=== PATIENT | female | born 1930 | race Caucasian/White ===

== ENCOUNTER → 2016-12-25 | Outpatient (CLI) | payer MEDICARE, OTHER ==
--- NOTE | 2016-12-27 08:39 | WOMENS IMAGING REPORT ---
EXAM DESCRIPTION: 3D SCREENING MAMMO BILAT COMPLETED DATE/TIME: 12/25/2016 10:39 am REASON FOR STUDY: ROUTINE SCREENING; Z12.31 Z12.31 ENCNTR SCREEN MAMMOGRAM FOR MALIGNANT NEOPLASM O F JUSTO COMPARISON: 2015 TECHNIQUE: Standard craniocaudal and mediolateral oblique views of each breast recorded using digita l acquisition and breast tomosynthesis. LIMITATIONS: None. FINDINGS: Findings present which are benign by mammographic criteria. No suspicious masses, calcifi cations or architectural distortion. Pertinent benign findings: Stable bilateral breast parenchymal calcifications and arterial vascular c alcifications. Read with the assistance of CAD. .[facility] - R2 Cenova Version 1.3 .[facility] Imaging - R2 Cenova Version 1.[address] - R2 Cenova Version 2.4 .[facility] [place] Cenova Version 2.4 .[facility] - R2 Motion Picture Equipment Machinist Version 9.2 Benign mammographic findings may include one or more of the following: Smooth masses, popcorn/rim/co arse calcifications, asymmetries, post-procedure changes, and lesions with long-standing stability. IMPRESSION: BENIGN MAMMOGRAPHIC FINDINGS. BIRADS 2 BREAST DENSITY: b. There are scattered areas of fibroglandular density. BIRAD: 2 BENIGN FINDING(S) RECOMMENDATION: RECOMMENDATION: ROUTINE SCREENING Please continue yearly bilateral screening tomosynthesis in December 2017 COMMENT: The patient has been notified of the results by letter per SA requirements. Additional no tification policies are in place for contacting patient with suspicious or incomplete findings. Quality ID #[id number]: The [employer] recommends an annual screening mammogram for women aged 40 years or over. This facility utilizes a reminder system to ensure that all patients receive reminder letters, and/or direct phone calls for appointments. This includes reminders for routine scr eening mammograms, diagnostic mammograms, or other Breast Imaging Interventions when appropriate. Th is patient will be placed in the appropriate reminder system. The [employer] (ACR) has developed recommendations for screening MRI of the breast s in certain patient populations, to be used in conjunction with mammography. Breast MRI surveillanc e may be appropriate for women with more than 20% lifetime risk of developing breast cancer as deter mined by genetic testing, significant family history of the disease, or history of mantle radiation f or Hodgkins Disease. ACR Practice Guidelines 2008. DBT Technology DBT is a type of tomographic mammography. With conventional mammography, overlapping breast tissue ma y make lesions difficult to detect, even with good compression. DBT uses an x-ray tube that rotates a round the breast, taking images at different angles. These images are then combined to create thin sl ices of the breast that the radiologist can view as a 3D reconstruction. The Holo[employer]DEL unit can perform full-field digital mammograms (2D imaging); or DBT (3D imaging); or both, in a combination mode that quickly performs both the mammogram and the tomosynthesis scan while the breast is still compressed. PQRS 6045F: Fluoroscopic imaging is not utilized for breast tomosynthesis. TECHNICAL DOCUMENTATION: FINDING NUMBER: (1) ASSESSMENT: (1) JOB ID: [id number] [email or web address]- All Rights Reserved
== END ==
LOC: WI 10:17
PROVIDERS: ATTEND Internal Medicine
DX: Z12.31 Encounter for screening mammogram for malignant neoplasm of breast (principal)
CPT/HCPCS: 77063; G0202; 77067

== ENCOUNTER → 2018-07-21 | Outpatient (CLI) | payer MEDICARE, OTHER ==
--- NOTE | 2018-07-21 13:19 | WOMENS IMAGING REPORT ---
EXAM DESCRIPTION: 3D SCREENING MAMMO BILAT COMPLETED DATE/TIME: 07/21/2018 12:31 pm REASON FOR STUDY: Z12.31 SCREENING MAMMO Z12.31 ENCNTR SCREEN MAMMOGRAM FOR MALIGNANT NEOPLASM OF B RE COMPARISON: 2015, 2016 TECHNIQUE: Standard craniocaudal and mediolateral oblique views of each breast recorded using digita l acquisition and breast tomosynthesis. LIMITATIONS: None. FINDINGS: No masses, calcifications or architectural distortion. No areas of suspicion. Read with the assistance of CAD. .[facility] - R2 Cenova Version 1.3 .[facility] Imaging - R2 Cenova Version 2.1 .[facility] - R2 Cenova Version 2.4 [place] [place] Cenova Version 2.4 .[facility] - R2 Glass Glazier Version 9.2 IMPRESSION: NORMAL MAMMOGRAM. BIRADS 1. BREAST DENSITY: b. There are scattered areas of fibroglandular density. BIRAD: 1 NEGATIVE RECOMMENDATION: ROUTINE SCREENING COMMENT: The patient has been notified of the results by letter per SA requirements. Additional no tification policies are in place for contacting patient with suspicious or incomplete findings. Quality ID #[id number]: The [employer] recommends an annual screening mammogram for women aged 40 years or over. This facility utilizes a reminder system to ensure that all patients receive reminder letters, and/or direct phone calls for appointments. This includes reminders for routine scr eening mammograms, diagnostic mammograms, or other Breast Imaging Interventions when appropriate. Th is patient will be placed in the appropriate reminder system. The [employer] (ACR) has developed recommendations for screening MRI of the breast s in certain patient populations, to be used in conjunction with mammography. Breast MRI surveillanc e may be appropriate for women with more than 20% lifetime risk of developing breast cancer as deter mined by genetic testing, significant family history of the disease, or history of mantle radiation f or Hodgkins Disease. ACR Practice Guidelines 2008. DBT Technology DBT is a type of tomographic mammography. With conventional mammography, overlapping breast tissue ma y make lesions difficult to detect, even with good compression. DBT uses an x-ray tube that rotates a round the breast, taking images at different angles. These images are then combined to create thin sl ices of the breast that the radiologist can view as a 3D reconstruction. The [employer] unit can perform full-field digital mammograms (2D imaging); or DBT (3D imaging); or both, in a combination mode that quickly performs both the mammogram and the tomosynthesis scan while the breast is still compressed. PQRS 6045F: Fluoroscopic imaging is not utilized for breast tomosynthesis. TECHNICAL DOCUMENTATION: FINDING NUMBER: (1) ASSESSMENT: (1) JOB ID: [id number] [employer]- All Rights Reserved Reading location - IP/workstation name: [email or web address]
== END ==
LOC: WI 11:28
PROVIDERS: ATTEND Internal Medicine
DX: Z12.31 Encounter for screening mammogram for malignant neoplasm of breast (principal)
CPT/HCPCS: 77063; 77067

== ENCOUNTER 2020-05-12 11:56 | Inpatient (IN) | payer MEDICARE, OTHER ==
[2020-05-12] MEDS ORDERED: NORMAL SALINE 1000 ML 1,000 ML IV ONE ×2 (13:15→14:17)
[2020-05-12 13:19] LABS: ABSOLUTE BASOPHILS # (AUTO) 0.1 10^3/uL (0.0-0.2); ABSOLUTE LYMPHOCYTES (AUTO) 0.7 10^3/uL (0.5-4.7); ABSOLUTE MONOCYTES (AUTO) 0.5 10^3/uL (0.1-1.4); ABSOLUTE NEUT (AUTO) 4.5 10^3/uL (1.7-8.2); BASOPHILS % (AUTO) 0.9 % (0-2); EOSINOPHILS % (AUTO) 0.6 % (0-6); HEMATOCRIT 38.1 % (36.0-47.0); HEMOGLOBIN 12.6 g/dL (12.0-15.5); LYMPHOCYTES % (AUTO) 12.7 % (13-45); MEAN CORPUSCULAR HEMOGLOBIN 30.3 pg (27.0-33.4); MEAN CORPUSCULAR VOLUME 92 fl (80-97); MONOCYTES % (AUTO) 8.4 % (3-13); PLATELET COUNT 160 10^3/uL (150-450); RED BLOOD COUNT 4.15 10^6/uL (3.72-5.28); RED CELL DISTRIBUTION WIDTH 15.2 % (11.5-14.0); SEGMENTED NEUTROPHILS % (AUTO) 77.4 % (42-78); TOTAL CELLS COUNTED % (AUTO) 100 %; WHITE BLOOD COUNT 5.8 10^3/uL (4.0-10.5)
[2020-05-12 13:50] LABS: ALBUMIN 3.9 g/dL (3.5-5.0); ALKALINE PHOSPHATASE 80 U/L (38-126); ANION GAP 6 (5-19); ASPARTATE AMINO TRANSFERASE 32 U/L (14-36); BILIRUBIN,DIRECT 0.2 mg/dL (0.0-0.4); BILIRUBIN,TOTAL 0.7 mg/dL (0.2-1.3); BLOOD UREA NITROGEN 16 mg/dL (7-20); CALCIUM 10.1 mg/dL (8.4-10.2); CARBON DIOXIDE 32 mmol/L (22-30); CHLORIDE 100 mmol/L (98-107); CREATINE KINASE 45 U/L (30-135); GLUCOSE 141 mg/dL (75-110); POTASSIUM 4.7 mmol/L (3.6-5.0); TOTAL PROTEIN 7.1 g/dL (6.3-8.2)
--- NOTE | 2020-05-12 13:50 | RADIOLOGY REPORT (SQ) ---
EXAM DESCRIPTION: CHEST SINGLE VIEW IMAGES COMPLETED DATE/TIME: 05/12/2020 1:34 pm REASON FOR STUDY: SOB/PUI COMPARISON: 11/13/2012 EXAM PARAMETERS: NUMBER OF VIEWS: One view. TECHNIQUE: Single frontal radiographic view of the chest acquired. RADIATION DOSE: NA LIMITATIONS: None. FINDINGS: LUNGS AND PLEURA: Chronic right infrahilar opacity patchy vague density suggested in the right upper lung zone. Calcified granuloma right lung base. No pneumothorax. MEDIASTINUM AND HILAR STRUCTURES: No masses. Contour normal. HEART AND VASCULAR STRUCTURES: Stable appearance. BONES: No acute findings. HARDWARE: None in the chest. OTHER: No other significant finding. IMPRESSION: 1. Chronic right infrahilar opacity the prior study dated 11/13/2012. 2. Vague opacity suggested in the right upper lung zone. TECHNICAL DOCUMENTATION: JOB ID: [id number] [employer]- All Rights Reserved Reading location - IP/workstation name: [email or web address]
[2020-05-12 13:51] LABS: CREATINE KINASE MB 1.9 ng/mL (<4.55); TROPONIN I 0.024 ng/mL
--- NOTE | 2020-05-12 14:04 | EKG REPORT ---
SEVERITY:- ABNORMAL ECG - ATRIAL FLUTTER WITH 2:1 AV BLOCK RIGHT BUNDLE BRANCH BLOCK : Confirmed by: Jose Elias Whitaker MD 12-May-2020 14:04:12
[2020-05-12] MEDS ORDERED: DEXAMETHASONE SOD PHOS INJ 10 MG/1 ML VIAL IV ONE (14:18)
--- NOTE | 2020-05-12 15:18 | ER Document Report ---
ED General - General Chief Complaint: Flu Symptoms Stated Complaint: CHEST PAIN,COUGH,CHILLS Time Seen by Provider: 05/12/20 14:00 Primary Care Provider: NERI DENIS MD [Primary Care Provider] - Follow up as needed TRAVEL OUTSIDE OF THE [place] IN LAST 30 DAYS: No - HPI Notes: Chief complaint: Cough, myalgias, generalized weakness and watery diarrhea History of present illness: 89-year-old female with history of hypertension and osteoarthritis presenting with symptoms as noted above over the past 1 week. Feels that she is getting weaker and notes that she has had about 5 loose stools today. No recent antibiotic therapy. Denies Covid exposure and says that she has generally avoided leaving the house recently. Not experiencing dyspnea on exertion. Patient says she has felt like she had a low-grade fever at home. Decreased appetite and fluid intake. Denies any previous cardiac history. She is not diabetic. She does have a history of hypothyroidism. Non-smoker. No alcohol consumption. - Related Data Allergies/Adverse Reactions: No Known Allergies Allergy (Verified 05/12/20 13:12) Past Medical History - General Information source: Patient, [facility] Records - Social History Smoking Status: Never Smoker Family History: Reviewed & Not Pertinent - Past Medical History Cardiac Medical History: Reports: Hx Hypertension Denies: Hx Coronary Artery Disease, Hx Heart Attack Pulmonary Medical History: Reports: Hx Pneumonia Denies: Hx Asthma, Hx Bronchitis, Hx COPD Neurological Medical History: Denies: Hx Cerebrovascular Accident, Hx Seizures Musculoskeletal Medical History: Reports Hx Arthritis - back Past Surgical History: Reports: Hx Orthopedic Surgery - RIGHT KNEE LIGAMENT INJURY REPAIR. - Immunizations Hx Diphtheria, Pertussis, Tetanus Vaccination: Yes Hx Pneumococcal Vaccination: 02/18/12 Review of Systems - Review of Systems Notes: Constitutional: As per HPI. HENT: Negative for sore throat. Eyes: Negative for visual changes. Cardiovascular: "Sore" in her chest bilaterally when she takes a deep breath. Respiratory: As per HPI. No sputum production. Gastrointestinal: As per HPI. Genitourinary: Negative for dysuria. Musculoskeletal: Diffuse myalgias. Skin: Negative for rash. Neurological: Negative for headaches, focal weakness or numbness. 10 point ROS negative except as marked above and in HPI. Physical Exam - Vital signs Vitals: Temp Pulse Resp BP Pulse Ox 97.9 F 158 H 18 143/91 H 94 05/12/20 12:11 05/12/20 12:11 05/12/20 12:11 05/12/20 12:11 05/12/20 12:11 - Notes Notes: GENERAL: Elderly female who is awake and alert but appears dehydrated. SKIN: Pale with diminished turgor. No rashes. HEAD: Normocephalic atraumatic. EYES: PERRLA. EOMI. Conjunctivae and sclerae clear. EARS: CANALS AND TMS CLEAR. NOSE: CLEAR. MOUTH: Tacky oral mucosa. Good dentition. No stridor or edema. No drooling. NECK: Supple. No masses or thyromegaly. No adenopathy. Carotids 2+ without bruits. No JVD. BACK: Symmetrical without tenderness. CHEST: Respirations are mildly labored with scattered rhonchi and symmetrical breath sounds. Slight dry cough. HEART: Tachycardic regular rhythm. No murmur gallop or rub. ABDOMEN: Mildly obese, soft nontender without masses, organomegaly or rebound. Bowel sounds are active. No bruits. GENITALIA: Deferred. EXTREMITIES: 1+ bilateral pretibial edema. Broken varicosities both lower legs. No calf tenderness. Cap refill less than 1.5 seconds. Dorsalis pedis and posterior tibial pulses 3+ and symmetrical. NEUROLOGICAL: GCS 15. Alert and oriented x3. Fluent speech. Cranial nerves II through XII intact. Sensorimotor and cerebellar normal. Normal tone. PSYCHIATRIC: Appropriate affect. Course - Re-evaluation Re-evalutation: 05/12/20 16:29 Elderly lady with new onset narrow complex tachycardia after having greater than 24 hours of watery diarrhea and clinical dehydration. She denies any prior history of CHF but has an elevated BNP and has some peripheral edema lower extremities which she says has developed over the last 1 week. No chest pain. Normal troponin. Test x-ray suggested patchy infiltrates. We got a rapid Covid swab which was negative. Patient was initially given IV fluids and her rate failed to improve with this. Subsequently she got some IV adenosine which unmasked her flutter waves. She has subsequently been given an IV bolus of diltiazem started on IV diltiazem drip. She is going to be admitted to [facility] by Dr. Thompson. - Vital Signs Vital signs: Temp Pulse Resp BP Pulse Ox 97.9 F 158 H 26 H 139/103 H 95 05/12/20 12:11 05/12/20 12:11 05/12/20 14:01 05/12/20 14:00 05/12/20 14:01 - Laboratory Results Result Diagrams: 05/12/20 13:00 05/12/20 13:00 Laboratory Results Interpreted: 05/12/20 05/12/20 05/12/20 13:00 13:00 13:00 RDW 15.2 H Lymph % (Auto) 12.7 L Carbonic Acid ABG pH ABG pCO2 ABG pO2 ABG HCO3 ABG Total CO2 ABG O2 Saturation Carbon Dioxide 32 H Est GFR (MDRD) Non-Af 51 L Glucose 141 H NT-Pro-B Natriuret Pep 2990 H 05/12/20 15:45 RDW Lymph % (Auto) Carbonic Acid 1.58 H ABG pH 7.34 L ABG pCO2 52.5 H ABG pO2 214.2 H ABG HCO3 27.9 H ABG Total CO2 29.5 H ABG O2 Saturation 99.4 H Carbon Dioxide Est GFR (MDRD) Non-Af Glucose NT-Pro-B Natriuret Pep Critical Laboratory Results Reviewed: Yes Attending or Supervising Physician who Reviewed Labs: MARTÍNEZ JIMENEZ Radiology Results Radiology Results Interpreted: 05/12/20 16:30 Chest X-Ray 05/12/20 00:00 IMPRESSION: 1. Chronic right infrahilar opacity the prior study dated 11/13/2012. 2. Vague opacity suggested in the right upper lung zone. Critical Radiology Results Reviewed: Yes Attending or Supervising Physician who Reviewed Radiology: MARTÍNEZ JIMENEZ - EKG Interpretation by Me Additional EKG results interpreted by me: 05/12/20 16:31 Twelve-lead EKG reviewed by me contemporaneously: 1559 hrs. Indication for study: Tachycardia Rhythm: SVT versus atrial flutter Rate: 156 Intervals: Normal QRS axis: [address]/T wave changes: Nonspecific Comparison with prior tracing: Persistent tachycardia Interpretation: SVT versus atrial flutter with 2-1 block Critical Care Note - Critical Care Note Total time excluding time spent on procedures (mins): 65 - IV adenosine for atrial flutter followed by administration of IV diltiazem bolus and drip. Discharge - Discharge Clinical Impression: Atrial flutter with 2-1 block, Acute decompensated heart failure, Dehydration, Diarrhea Condition: Fair Disposition: ADMITTED INPATIENT Admitting Provider: Dr. Thompson Unit Admitted: [facility]U Referrals: NERI DENIS MD [Primary Care Provider] - Follow up as needed
[2020-05-12] MEDS ORDERED: ADENOSINE INJ/PF 6 MG/2 ML SDV IV ONE ×4 (16:01→16:15)
[2020-05-12] MEDS ORDERED: DILTIAZEM HCL INJ 25 MG/5 ML VIAL IV ONE (16:12)
[2020-05-12 16:23] LABS: ARTERIAL BLOOD BASE EXCESS 1.2 mmol/L; ARTERIAL BLOOD H2CO3 1.58 mmol/L (1.05-1.35); ARTERIAL BLOOD HCO3 27.9 mmol/L (20-24); ARTERIAL BLOOD O2 SATURATION 99.4 % (94-98); ARTERIAL BLOOD PCO2 52.5 mmHg (35-45); ARTERIAL BLOOD PH 7.34 (7.35-7.45); ARTERIAL BLOOD PO2 214.2 mmHg (80-100); ARTERIAL BLOOD TOTAL CO2 29.5 mmol/L (21-25)
[2020-05-12 16:25] LABS: ARTERIAL BLOOD FIO2 2L
[2020-05-12] MEDS: DILTIAZEM HCL/D5W 125 MG/125 ML RTUINJ IV PRN (16:42)
[2020-05-12] MEDS ORDERED: ACETAMINOPHEN 325 MG TABLET PO PRN (17:42)
[2020-05-12] MEDS ORDERED: DEXTROSE 5%-1/4 NORMAL SALINE 1,000 ML IV PRN (17:42)
--- NOTE | 2020-05-12 19:00 | EKG REPORT ---
SEVERITY:- ABNORMAL ECG - ATRIAL FLUTTER WITH RVR INCOMPLETE RIGHT BUNDLE BRANCH BLOCK LOW VOLTAGE THROUGHOUT : Confirmed by: Jose Elias Whitaker MD 12-May-2020 18:59:34
--- NOTE | 2020-05-12 19:04 | PDOC H&P ---
History of Present Illness Admission Date/PCP: 89-year-old female with history of hypertension and osteoarthritis presenting with symptoms of a cold, and subsequent diarrhea. Feels that she is getting weaker and notes that she has had about 5 loose stools today. No recent antibiotic therapy. Denies Covid exposure and says that she has generally avoided leaving the house recently. Not experiencing dyspnea on exertion, but has been noticing substernal chest pain, chills Decreased appetite and fluid intake. Denies any previous cardiac history, but has noted persistent swelling in her legs in the last few days and took some medications for it Patient complains of: chest pain History of Present Illness: SANTIAGO LOVE is a 89 year old female Past Medical History Cardiac Medical History: Reports: Hypertension Denies: Coronary Artery Disease, Myocardial Infarction Pulmonary Medical History: Reports: Pneumonia Denies: Asthma, Bronchitis, Chronic Obstructive Pulmonary Disease (COPD) Neurological Medical History: Denies: Seizures Musculoskeltal Medical History: Reports: Arthritis - back Hematology: Denies: Anemia Past Surgical History Past Surgical History: Reports: Orthopedic Surgery - RIGHT KNEE LIGAMENT INJURY REPAIR. Social History Smoking Status: Never Smoker Frequency of Alcohol Use: None Hx Recreational Drug Use: No Family History Family History: CAD Parental Family History Reviewed: Yes - CAD Children Family History Reviewed: No Sibling(s) Family History Reviewed.: No Medication/Allergy Home Medications: Aspirin [Aspirin 81 mg Chewable Tablet] 81 mg PO DAILY 10/12/12 Atorvastatin Calcium [Lipitor 20 mg Tablet] 20 mg PO QHS #0 tablet 10/24/12 Levothyroxine Sodium [Synthroid 0.05 mg Tablet] 0.05 mg PO DAILY #0 tablet 10/24/12 Cholecalciferol (Vitamin D3) [Vitamin D3 5000 unit Capsule] 5,000 unit PO 11/13/12 Metoprolol Tartrate [Lopressor 25 Mg Tablet] 25 mg PO 11/13/12 Ciprofloxacin HCl [Cipro 500 mg Tablet] 500 mg PO BID 11/27/12 Oxycodone HCl/Acetaminophen [Percocet 5-325 mg Tablet] 1 - 2 tab PO ASDIR PRN 11/27/12 Phenazopyridine HCl [Pyridium 200 mg Tablet] 200 mg PO Q8 11/27/12 Allergies/Adverse Reactions: No Known Allergies Allergy (Verified 05/12/20 13:12) Review of Systems Constitutional: ABSENT: chills, fever(s), headache(s), weight gain, weight loss Eyes: ABSENT: visual disturbances Ears: ABSENT: hearing changes Cardiovascular: ABSENT: chest pain, dyspnea on exertion, edema, orthropnea, palpitations Respiratory: ABSENT: cough, hemoptysis Gastrointestinal: ABSENT: abdominal pain, constipation, diarrhea, hematemesis, hematochezia, nausea, vomiting Genitourinary: ABSENT: dysuria, hematuria Musculoskeletal: ABSENT: joint swelling Integumentary: ABSENT: rash, wounds Neurological: ABSENT: abnormal gait, abnormal speech, confusion, dizziness, focal weakness, syncope Psychiatric: ABSENT: anxiety, depression, homidical ideation, suicidal ideation Endocrine: ABSENT: cold intolerance, heat intolerance, polydipsia, polyuria Hematologic/Lymphatic: ABSENT: easy bleeding, easy bruising Physical Exam Vital Signs: Temp Pulse Resp BP Pulse Ox 97.9 F 158 H 24 H 150/78 H 96 05/12/20 12:11 05/12/20 12:11 05/12/20 18:01 05/12/20 18:01 05/12/20 18:01 Intake & Output 05/11/20 05/12/20 05/13/20 06:59 06:59 06:59 Intake Total 2018 Balance 2018 Weight 88.6 kg General appearance: PRESENT: no acute distress Head exam: PRESENT: atraumatic Eye exam: PRESENT: EOMI, PERRLA Mouth exam: PRESENT: dry mucosa Neck exam: PRESENT: full ROM Respiratory exam: PRESENT: clear to auscultation timothy Cardiovascular exam: PRESENT: irregular rhythm Pulses: PRESENT: normal dorsalis pedis pul GI/Abdominal exam: PRESENT: normal bowel sounds. ABSENT: tenderness Musculoskeletal exam: PRESENT: full ROM Neurological exam: PRESENT: alert, altered, oriented to time, CN II-XII grossly intact Psychiatric exam: PRESENT: appropriate affect Skin exam: PRESENT: intact Results Laboratory Results: 05/12/20 13:00 05/12/20 13:00 05/12/20 05/12/20 05/12/20 13:00 13:00 15:45 WBC 5.8 RBC 4.15 Hgb 12.6 Hct 38.1 MCV 92 MCH 30.3 MCHC 33.0 RDW 15.2 H Plt Count 160 Seg Neutrophils % 77.4 Carbonic Acid 1.58 H HCO3/H2CO3 Ratio 17:1 ABG pH 7.34 L ABG pCO2 52.5 H ABG pO2 214.2 H ABG HCO3 27.9 H ABG O2 Saturation 99.4 H ABG Base Excess 1.2 FiO2 2L Sodium 138.4 Potassium 4.7 Chloride 100 Carbon Dioxide 32 H Anion Gap 6 BUN 16 Creatinine 1.02 Est GFR ( Amer) > 60 Glucose 141 H Calcium 10.1 Total Bilirubin 0.7 AST 32 Alkaline Phosphatase 80 Total Protein 7.1 Albumin 3.9 05/12/20 05/12/20 05/12/20 13:00 13:00 13:00 Creatine Kinase 45 CK-MB (CK-2) 1.90 Troponin I 0.024 Cancelled NT-Pro-B Natriuret Pep 2990 H Impressions: Chest X-Ray 05/12/20 00:00 IMPRESSION: 1. Chronic right infrahilar opacity the prior study dated 11/13/2012. 2. Vague opacity suggested in the right upper lung zone. Assessment and Plan - Diagnosis (1) Acute CHF (congestive heart failure) Qualifiers: Heart failure type: unspecified Is this a current diagnosis for this admission?: Yes (2) Atrial flutter by electrocardiogram Is this a current diagnosis for this admission?: Yes (3) Acute diarrhea Is this a current diagnosis for this admission?: Yes (4) Dehydration Is this a current diagnosis for this admission?: Yes - Plan Summary Summary: 1. acute CHF exacerbation with atrial flutter: new for patient, echo and cardiology consult, telemetry on cardizem drip 2. Diarrhea: no recent antibiotic use > 3BMs per day, C. diff pending 3. OA/Hypertension: home meds need reconciled Code: Full - Time Time Spent with patient: 25-34 minutes Anticipated Discharge Disposition: Home, Self Care Anticipated Discharge Timeframe: unknown Disposition: inpatient > 2midnight
--- NOTE | 2020-05-12 23:28 | XCELERA REPORT ---
[address] [address] Transthoracic Echocardiogram Report Name: SANTIAGO LOVE Age: 89 yrs Gender: Female : 1930 Patient Status: Inpatient Patient Location: [place] [address]^A Study Date: 05/12/2020 08:18 PM Height: 61 in Weight: 195 lb BSA: 1.9 m2 Procedure: A complete two-dimensional transthoracic echocardiogram was performed (2D, M-mode, spectral and color flow Doppler). The study was technically adequate with some images being suboptimal in quality. Reason For Study: chf Ordering Physician: EVELIN WESTBROOK Performed By: Prudence Cisneros Interpretation Summary The patient was in rapid atrial fibrillation during the study. The left ventricle is grossly normal size. Left ventricular systolic function is normal. The Ejection Fraction estimate is 60-65%. LV diastolic function could not be adequately assessed due to atrial fibrilation. No regional wall motion abnormalities noted. LV diastolic function could not be adequately assessed due to atrial fibrilation. Mild biatrial enlargement. Mildly reduced RV systolic dysfunction. Mild to moderate MR, mild to moderate TR, mild to moderate PI. IVC is dilated and without respiratory variation. Moderate pulmonary hypertension with pressures estimated between 51 and 56 mmHg. No prior studies for comparison. MMode/2D Measurements & Calculations RVDd: 3.5 cm LVIDd: 4.1 cm FS: 34.9 % Ao root diam: 3.3 cm IVSd: 1.3 cm LVIDs: 2.7 cm EDV(Teich): Ao root area: 73.1 ml LVPWd: 1.1 cm 8.5 cm2 ESV(Teich): LA dimension: 4.1 cm 25.9 ml EF(Teich): 64.6 % LVLd ap4: 6.6 cm SV(MOD-sp4): EDV(MOD-sp4): 44.0 ml 66.0 ml LVLs ap4: 5.0 cm ESV(MOD-sp4): 22.0 ml EF(MOD-sp4): 66.7 % Doppler Measurements & Calculations MV E max alexandro: MV P1/2t max alexandro: Ao V2 max: LV V1 max P.5 cm/sec 158.8 cm/sec 153.8 cm/sec 2.5 mmHg MV A max alexandro: MV P1/2t: 66.1 msec Ao max PG: LV V1 max: 68.6 cm/sec 9.5 mmHg 79.5 cm/sec MVA(P1/2t): 3.3 cm2 MV E/A: 2.3 MV dec slope: 703.7 cm/sec2 MV dec time: 0.18 sec PA V2 max: PI end-d alexandro: TR max alexandro: MV P1/2t-pr_phl: 63.8 cm/sec 111.5 cm/sec 279.2 cm/sec 66.1 msec PA max P.6 mmHg TR max P.2 mmHg Left Ventricle The left ventricle is grossly normal size. Left ventricular systolic function is normal. The Ejection Fraction estimate is 60-65%. LV diastolic function could not be adequately assessed due to atrial fibrilation. No regional wall motion abnormalities noted. Right Ventricle The right ventricle is grossly normal size. The right ventricular systolic function is mildly reduced. Atria The right atrium is mildly dilated. The left atrium is mildly dilated. Mitral Valve There is moderate mitral leaflet calcification. There is no evidence of mitral valve prolapse. There is no mitral valve stenosis. There is a mild to moderate amount of mitral regurgitation. Aortic Valve The aortic valve is moderately calcified. There is no aortic valve stenosis. No aortic regurgitation is present. Tricuspid Valve The tricuspid valve is not well visualized, but is grossly normal. There is no tricuspid valve prolapse. There is no tricuspid stenosis. There is a mild to moderate amount of tricuspid regurgitation. There is moderate pulmonary hypertension by echo. Right ventricular systolic pressure is estimated to be elevated at 50-60mmHg. Pulmonic Valve The pulmonic valve is not well seen, but is grossly normal. There is no pulmonic valvular stenosis. There is a mild to moderate amount of pulmonic regurgitation. Great Vessels The inferior vena cava appeared dilated and did not change with respiration (RAP > 20 mmHg). Effusions There is no pericardial effusion. There is no pleural effusion. : EVELIN WESTBROOK Antonio
[2020-05-13] MEDS: DILTIAZEM HCL/D5W 125 MG/125 ML RTUINJ IV PRN ×2 (03:12→16:00)
[2020-05-13 06:35] LABS: ABSOLUTE LYMPHOCYTES (AUTO) 0.4 10^3/uL (0.5-4.7); ABSOLUTE MONOCYTES (AUTO) 0.1 10^3/uL (0.1-1.4); ABSOLUTE NEUT (AUTO) 3.5 10^3/uL (1.7-8.2); BASOPHILS % (AUTO) 0.3 % (0-2); HEMATOCRIT 36.6 % (36.0-47.0); HEMOGLOBIN 12.1 g/dL (12.0-15.5); LYMPHOCYTES % (AUTO) 10.5 % (13-45); MEAN CORPUSCULAR HEMOGLOBIN 30.4 pg (27.0-33.4); MEAN CORPUSCULAR HGB CONC 32.9 g/dL (32.0-36.0); MEAN CORPUSCULAR VOLUME 92 fl (80-97); MONOCYTES % (AUTO) 2.2 % (3-13); PLATELET COUNT 148 10^3/uL (150-450); RED BLOOD COUNT 3.96 10^6/uL (3.72-5.28); RED CELL DISTRIBUTION WIDTH 15.1 % (11.5-14.0); TOTAL CELLS COUNTED % (AUTO) 100 %
[2020-05-13 07:03] LABS: ANION GAP 5 (5-19); BLOOD UREA NITROGEN 15 mg/dL (7-20); CALCIUM 9.5 mg/dL (8.4-10.2); CARBON DIOXIDE 31 mmol/L (22-30); CHLORIDE 104 mmol/L (98-107); GLUCOSE 152 mg/dL (75-110); PHOSPHORUS 4.3 mg/dL (2.5-4.5); POTASSIUM 5.4 mmol/L (3.6-5.0)
--- NOTE | 2020-05-13 08:20 | PDOC CONSULTATION ---
Consultation Consult Date: 05/13/20 Attending physician:: EVELIN LEIJA Provider Consulted: TARA LANDRUM Consult reason:: A-flutter History of Present Illness Admission Date/PCP: 05/12/20 19:34 NERI DENIS MD History of Present Illness: 89-year-old female with history of hypertension, hyperlipidemia and arthritis who is consulted to our service for atrial flutter and elevated troponins. The patient has been treated by her primary care provider, Dr. Denis, for an undefined respiratory illness for several months consisting of some shortness of breath and cough. Approximately 2 weeks ago her symptoms worsened and she felt she had a cold. Later she developed diarrhea as well as loss of appetite and a burning sensation across the chest that was constantly present for 3 days and that was alleviated with [place]. Yesterday she became more short of breath and decided to seek medical attention in our facility. In the emergency room she was found to be in rapid atrial flutter and was initially begun on a Cardizem drip which was stopped several hours later. This morning she denies chest discomfort but complains of mild shortness of breath. Physical exam on 05/13/2020: GENERAL: Obese. Pleasant and conversational. Oriented x3 with normal mood. Not in acute distress. Well groomed and well developed. HEENT: Normocephalic, atraumatic. Pupils equal. Sclerae anicteric. Oropharynx moist. NECK: Difficult to evaluate for JVD given her body habitus. No carotid bruits. LUNGS: Very faint deep inspiratory wheezing bilaterally. Normal respiratory effort without the use of accessory muscles or intercostal retractions. CARDIOVASCULAR: Irregularly irregular rate and rhythm, no murmurs, rubs, or gallops. PMI not displaced. ABDOMEN: No masses or tenderness to palpation. No bruit. Difficult to assess for organomegaly given her body habitus. No abdominal aorta bruit noted. EXTREMITIES: Trace pitting edema bilaterally, no cyanosis, no clubbing. +2 pulses femoral and pedal pulses bilaterally. SKIN: No lesions or rashes. MUSCULOSKELETAL: No chest tenderness to palpation. NEUROLOGIC: Nonfocal. No gross sensory or motor deficits bilateral upper or lower extremities. Echocardiogram on May 12, 2020: -The patient was in rapid atrial flutter during the study. -EF 60 to 65%. -Cannot assess for diastolic function. -Mild biatrial lodgment. -Mildly decreased RV systolic function. -Mild to moderate MR, mild to moderate TR, mild to moderate PI. -Moderate pulmonary hypertension with pressures between 51 and 56 mmHg. Past Medical History Cardiac Medical History: Reports: Hypertension Denies: Coronary Artery Disease, Myocardial Infarction Pulmonary Medical History: Reports: Pneumonia Denies: Asthma, Bronchitis, Chronic Obstructive Pulmonary Disease (COPD) Neurological Medical History: Denies: Seizures Musculoskeltal Medical History: Reports: Arthritis - back Hematology: Denies: Anemia Past Surgical History Past Surgical History: Reports: Orthopedic Surgery - RIGHT KNEE LIGAMENT INJURY REPAIR. Social History Smoking Status: Never Smoker Frequency of Alcohol Use: None Hx Recreational Drug Use: No Drugs: None Hx Prescription Drug Abuse: No Family History Family History: CAD Parental Family History Reviewed: Yes Children Family History Reviewed: Yes Sibling(s) Family History Reviewed.: Yes Medication/Allergy Allergies/Adverse Reactions: No Known Allergies Allergy (Verified 05/12/20 13:12) Physical Exam Vital Signs: Temp Pulse Resp BP Pulse Ox 98 F 77 20 123/65 97 05/12/20 23:11 05/13/20 03:08 05/12/20 23:11 05/13/20 03:08 05/12/20 23:11 Intake & Output 05/11/20 05/12/20 05/13/20 06:59 06:59 06:59 Intake Total 2113 Output Total 200 Balance 1913 Weight 88.6 kg Results Laboratory Results: 05/13/20 06:01 05/12/20 05/12/20 05/12/20 13:00 13:00 15:45 WBC 5.8 RBC 4.15 Hgb 12.6 Hct 38.1 MCV 92 MCH 30.3 MCHC 33.0 RDW 15.2 H Plt Count 160 Seg Neutrophils % 77.4 Carbonic Acid 1.58 H HCO3/H2CO3 Ratio 17:1 ABG pH 7.34 L ABG pCO2 52.5 H ABG pO2 214.2 H ABG HCO3 27.9 H ABG O2 Saturation 99.4 H ABG Base Excess 1.2 FiO2 2L Sodium 138.4 Potassium 4.7 Chloride 100 Carbon Dioxide 32 H Anion Gap 6 BUN 16 Creatinine 1.02 Est GFR ( Amer) > 60 Glucose 141 H Calcium 10.1 Total Bilirubin 0.7 AST 32 Alkaline Phosphatase 80 Total Protein 7.1 Albumin 3.9 05/13/20 06:01 WBC 4.0 RBC 3.96 Hgb 12.1 Hct 36.6 MCV 92 MCH 30.4 MCHC 32.9 RDW 15.1 H Plt Count 148 L Seg Neutrophils % 87.0 H Carbonic Acid HCO3/H2CO3 Ratio ABG pH ABG pCO2 ABG pO2 ABG HCO3 ABG O2 Saturation ABG Base Excess FiO2 Sodium Potassium Chloride Carbon Dioxide Anion Gap BUN Creatinine Est GFR ( Amer) Glucose Calcium Total Bilirubin AST Alkaline Phosphatase Total Protein Albumin 05/12/20 05/12/20 05/12/20 13:00 13:00 13:00 Creatine Kinase 45 CK-MB (CK-2) 1.90 Troponin I 0.024 Cancelled NT-Pro-B Natriuret Pep 2990 H Impressions: Chest X-Ray 05/12/20 00:00 IMPRESSION: 1. Chronic right infrahilar opacity the prior study dated . 2. Vague opacity suggested in the right upper lung zone. 05/13/20 06:01 05/13/20 06:01 MCV 92 fl (80-97) 05/13/20 06:01 MCH 30.4 pg (27.0-33.4) 05/13/20 06:01 MCHC 32.9 g/dL (32.0-36.0) 05/13/20 06:01 RDW 15.1 % (11.5-14.0) H 05/13/20 06:01 Seg Neutrophils % 87.0 % (42-78) H 05/13/20 06:01 Carbonic Acid 1.58 mmol/L (1.05-1.35) H 05/12/20 15:45 HCO3/H2CO3 Ratio 17:1 05/12/20 15:45 ABG pH 7.34 (7.35-7.45) L 05/12/20 15:45 ABG pCO2 52.5 mmHg (35-45) H 05/12/20 15:45 ABG pO2 214.2 mmHg (80-100) H 05/12/20 15:45 ABG HCO3 27.9 mmol/L (20-24) H 05/12/20 15:45 ABG O2 Saturation 99.4 % (94-98) H 05/12/20 15:45 ABG Base Excess 1.2 mmol/L 05/12/20 15:45 FiO2 2L 05/12/20 15:45 Chloride 104 mmol/L (98-107) 05/13/20 06:01 Carbon Dioxide 31 mmol/L (22-30) H 05/13/20 06:01 Anion Gap 5 (5-19) 05/13/20 06:01 Est GFR ( Amer) > 60 (>60) 05/13/20 06:01 Glucose 152 mg/dL (75-110) H 05/13/20 06:01 Calcium 9.5 mg/dL (8.4-10.2) 05/13/20 06:01 Phosphorus 4.3 mg/dL (2.5-4.5) 05/13/20 06:01 Magnesium 2.0 mg/dL (1.6-2.3) 05/13/20 06:01 Total Bilirubin 0.7 mg/dL (0.2-1.3) 05/12/20 13:00 AST 32 U/L (14-36) 05/12/20 13:00 Alkaline Phosphatase 80 U/L (38-126) 05/12/20 13:00 Total Protein 7.1 g/dL (6.3-8.2) 05/12/20 13:00 Albumin 3.9 g/dL (3.5-5.0) 05/12/20 13:00 05/12/20 05/12/20 05/12/20 13:00 13:00 13:00 Creatine Kinase 45 CK-MB (CK-2) 1.90 Troponin I 0.024 Cancelled NT-Pro-B Natriuret Pep 2990 H 05/13/20 06:01 Creatine Kinase CK-MB (CK-2) Troponin I NT-Pro-B Natriuret Pep 2310 H Current Medication List Generic Name Dose Route Start Last Admin Trade Name Freq PRN Reason Stop Dose Admin Acetaminophen 650 mg 05/12/20 17:42 Acetaminophen 325 Mg Tablet PO 06/11/20 17:41 Q4HP PRN FEVER >101 Enoxaparin Sodium 40 mg 05/13/20 10:00 Enoxaparin Sodium Inj 40 Mg/0.4 Ml Disp.Syrin SUBCUT 06/12/20 09:59 DAILY TEE Diltiazem HCl 125 mg in 125 mls @ 0 mls/hr 05/12/20 16:15 05/13/20 03:12 Cardizem Rtu Inj 125 Mg-D5w 125 Ml Premix IV 06/11/20 16:14 10 mls/hr CONTINUOUS PRN 10 mls/hr THIS MED IS NOT "PRN" Administration Protocol Titrate Dextrose/Sodium Chloride 1,000 mls @ 75 mls/hr 05/12/20 17:42 D5-1/4ns 1000 Ml Iv Solution IV 06/11/20 17:41 CONTINUOUS PRN THIS MED IS NOT "PRN" Discontinued Medications Generic Name Dose Route Start Last Admin Trade Name Freq PRN Reason Stop Dose Admin Adenosine Confirm 05/12/20 16:01 05/12/20 16:17 Adenosine Inj/Pf 6 Mg/2 Ml Sdv Administered 05/12/20 16:02 Not Given Dose 6 mg IV .STK-MED ONE Adenosine Confirm 05/12/20 16:07 05/12/20 16:17 Adenosine Inj/Pf 6 Mg/2 Ml Sdv Administered 05/12/20 16:08 Not Given Dose 6 mg IV .STK-MED ONE Adenosine 6 mg 05/12/20 16:14 05/12/20 16:02 Adenosine Inj/Pf 6 Mg/2 Ml Sdv IV 05/12/20 16:15 6 mg NOW ONE Administration Adenosine 12 mg 05/12/20 16:15 05/12/20 16:08 Adenosine Inj/Pf 6 Mg/2 Ml Sdv IV 05/12/20 16:16 12 mg NOW ONE Administration Dexamethasone Sodium Phosphate 10 mg 05/12/20 14:18 05/12/20 15:32 Dexamethasone Sod Phos Inj 10 Mg/1 Ml Vial IV 05/12/20 14:19 10 mg NOW ONE Administration Diltiazem HCl 15 mg 05/12/20 16:12 05/12/20 16:25 Diltiazem Hcl Inj 25 Mg/5 Ml Vial IV 05/12/20 16:13 15 mg NOW ONE Administration Sodium Chloride 1,000 mls @ 0 mls/hr 05/12/20 13:15 05/12/20 18:31 Nacl 0.9% 1000 Ml Iv Soln IV 05/12/20 13:16 Infused BOLUS ONE Infusion Wide Open Sodium Chloride 1,000 mls @ 0 mls/hr 05/12/20 14:17 05/12/20 18:31 Nacl 0.9% 1000 Ml Iv Soln IV 05/12/20 14:18 Infused BOLUS ONE Infusion Wide Open Assessment & Plan - Diagnosis (1) Atrial flutter by electrocardiogram Is this a current diagnosis for this admission?: Yes Plan: This is her first episode of atrial flutter and her [id number] score is 4 therefore she should be anticoagulated. Her heart rate on telemetry is improved but she is currently on now rate controlling agents and I suspect she will develop rapid ventricular response during physical activities. Recommendations: -Start Coreg 3.125 mg twice daily which will help with rate control as well as heart failure. -Start Eliquis 5 mg p.o. twice daily. -Pharmacological nuclear stress test once the patient is clinically improved. (2) Heart failure with preserved ejection fraction Qualifiers: Heart failure chronicity: acute Qualified Code(s): I50.31 - Acute diastolic (congestive) heart failure Is this a current diagnosis for this admission?: Yes Plan: Her echocardiogram demonstrated a normal ejection fraction but unfortunately diastolic function could not be assessed due to the presence of rapid atrial fibrillation/flutter. There was also mild RV systolic dysfunction. She will eventually need ischemic assessment once clinically improved. Recommendations: -Diuresis with Lasix 20 mg IV twice daily. -Start Coreg 3.125 mg p.o. twice daily. -Start lisinopril 2.5 mg daily. -Restrict fluid intake to 1500 cc daily. -Low sodium diet, less than 1500 mg daily. -Strict intake and output. -Daily weights. -Daily BMP and magnesium and replace electrolytes as needed. -Pharmacological nuclear stress test once the patient is clinically improved. (3) Hypertension Qualifiers: Hypertension type: essential hypertension Qualified Code(s): I10 - Essential (primary) hypertension Is this a current diagnosis for this admission?: Yes Plan: Her blood pressure is at goal. I will defer further management to the primary team.
[2020-05-13 09:20] LABS: ANION GAP 5 (5-19); BLOOD UREA NITROGEN 15 mg/dL (7-20); CALCIUM 9.5 mg/dL (8.4-10.2); CARBON DIOXIDE 29 mmol/L (22-30); CHLORIDE 103 mmol/L (98-107); GLUCOSE 179 mg/dL (75-110); POTASSIUM 5.7 mmol/L (3.6-5.0)
[2020-05-13] MEDS ORDERED: ENOXAPARIN SODIUM INJ 40 MG/0.4 ML DISP.SYRIN SUBCUT SCH (10:00)
[2020-05-13] MEDS: ASPIRIN 81 MG TABLET, ENT COATED PO SCH (10:38)
[2020-05-13] MEDS ORDERED: LOPERAMIDE HCL 2 MG CAPSULE PO PRN (12:10)
[2020-05-13] MEDS ORDERED: SODIUM POLYSTYRENE SULFONATE 15 GM/60 ML PO ONE ×2 (12:20→17:59)
[2020-05-13] MEDS ORDERED: DEXTROSE 50%-WATER 25 GM/50 ML DISP.SYRIN IV PRN ×2 (14:45)
[2020-05-13] MEDS ORDERED: GLUCAGON,HUMAN RECOMB 1 MG INJ SUBCUT PRN (14:45)
[2020-05-13] MEDS ORDERED: DEXTROSE 40% GEL 15 GM TUBE PO PRN ×2 (14:45)
[2020-05-13] MEDS ORDERED: SODIUM POLYSTYRENE SULFONATE 15 GM/60 ML ONE (16:26)
[2020-05-13] MEDS ORDERED: CLOTRIMAZOLE/BETAMETHASONE DIP CREAM 15 GM TOP PRN (16:30)
[2020-05-13] MEDS: CELECOXIB 100 MG CAPSULE PO SCH (16:30)
[2020-05-13] MEDS ORDERED: DEXTROSE 5%-1/2 NORMAL SALINE 1,000 ML IV PRN (18:38)
[2020-05-13] MEDS ORDERED: ALBUTEROL SULFATE HFA (90 MCG/PUFF) 8 GM MDI IH PRN (18:38)
--- NOTE | 2020-05-13 18:42 | PDOC PROGRESS REPORT ---
Subjective Date:: 05/13/20 Subjective:: patient has some chest pain with coughing, RN concerned about aspirating lunch t his afternoon Reason For Visit: DEHYDRATION Physical Exam Vital Signs: Temp Pulse Resp BP Pulse Ox 98 F 79 20 133/59 H 95 05/13/20 10:00 05/13/20 18:00 05/12/20 23:11 05/13/20 18:00 05/13/20 15:27 Intake & Output 05/12/20 05/13/20 05/14/20 06:59 06:59 06:59 Intake Total 2113 151 Output Total 200 Balance 1913 151 Weight 88.6 kg General appearance: PRESENT: no acute distress Mouth exam: PRESENT: dry mucosa Respiratory exam: PRESENT: rhonchi - in RLL 95% on RA Cardiovascular exam: PRESENT: irregular rhythm Results Laboratory Results: 05/13/20 06:01 05/13/20 08:39 05/13/20 05/13/20 05/13/20 06:01 06:01 08:39 WBC 4.0 RBC 3.96 Hgb 12.1 Hct 36.6 MCV 92 MCH 30.4 MCHC 32.9 RDW 15.1 H Plt Count 148 L Seg Neutrophils % 87.0 H Sodium 140.3 137.0 Potassium 5.4 H 5.7 H Chloride 104 103 Carbon Dioxide 31 H 29 Anion Gap 5 5 BUN 15 15 Creatinine 0.93 0.90 Est GFR ( Amer) > 60 > 60 Glucose 152 H 179 H Calcium 9.5 9.5 Phosphorus 4.3 Magnesium 2.0 05/12/20 05/12/20 05/12/20 13:00 13:00 13:00 Creatine Kinase 45 CK-MB (CK-2) 1.90 Troponin I 0.024 Cancelled NT-Pro-B Natriuret Pep 2990 H 05/13/20 06:01 Creatine Kinase CK-MB (CK-2) Troponin I NT-Pro-B Natriuret Pep 2310 H Impressions: Chest X-Ray 05/12/20 00:00 IMPRESSION: 1. Chronic right infrahilar opacity the prior study dated 11/13/2012. 2. Vague opacity suggested in the right upper lung zone. Assessment and Plan - Diagnosis (1) Acute CHF (congestive heart failure) Qualifiers: Heart failure type: unspecified Is this a current diagnosis for this admission?: Yes (2) Atrial flutter by electrocardiogram Is this a current diagnosis for this admission?: Yes (3) Acute diarrhea Is this a current diagnosis for this admission?: Yes (4) Dehydration Is this a current diagnosis for this admission?: Yes (5) Aspiration pneumonia due to food (regurgitated) Is this a current diagnosis for this admission?: Yes - Plan Summary Summary: 1. acute CHF exacerbation with atrial flutter: new for patient, echo with preserved EF, telemetry on cardizem drip which is to be weaned off. Coreg will be started tonight. Outpatient heart cath/stress test per cardiology 2. Diarrhea/Viral: no recent antibiotic use > 3BMs per day, C. diff pending, no BM since last night. Low dose IVF started 3. OA/Hypertension: home meds reconciled 4. aspiration pneumonia: NPO now, [facility] eval placed - Time Time Spent with patient: 15-24 minutes Anticipated Discharge Disposition: Home, Self Care Anticipated Discharge Timeframe: within 72 hours
--- NOTE | 2020-05-13 20:01 | RADIOLOGY REPORT (SQ) ---
EXAM DESCRIPTION: CHEST SINGLE VIEW IMAGES COMPLETED DATE/TIME: 05/13/2020 7:31 pm REASON FOR STUDY: pneumonia COMPARISON: 05/12/2020 EXAM PARAMETERS: NUMBER OF VIEWS: One view. TECHNIQUE: Single frontal radiographic view of the chest acquired. RADIATION DOSE: NA LIMITATIONS: None. FINDINGS: LUNGS AND PLEURA: There is opacification the medial right base in the infrahilar region. Ill-defined opacification the left base with blurring of the left hemidiaphragm. MEDIASTINUM AND HILAR STRUCTURES: No masses. Contour normal. HEART AND VASCULAR STRUCTURES: Heart normal in size. Normal vasculature. BONES: No acute findings. HARDWARE: None in the chest. OTHER: No other significant finding. IMPRESSION: Atelectasis versus focal pneumonia in the right lower lobe. Cannot exclude a limited le ft lower lobe pneumonia. TECHNICAL DOCUMENTATION: JOB ID: [id number] [email or web address] All Rights Reserved Reading location - IP/workstation name: [email or web address]
[2020-05-13] MEDS ORDERED: AMPICILLIN SOD/SULBACTAM 3 GM VIAL ONE (21:46)
[2020-05-13] MEDS ORDERED: CARVEDILOL 3.125 MG TABLET PO SCH (22:00)
[2020-05-13] MEDS: AMPICILLIN SOD/SULBACTAM 3 GM VIAL IV SCH (22:16)
[2020-05-13] MEDS: ATORVASTATIN CALCIUM 20 MG TABLET PO SCH (22:17)
[2020-05-13] MEDS: APIXABAN 5 MG TABLET PO SCH (22:33)
[2020-05-14] MEDS: AMPICILLIN SOD/SULBACTAM 3 GM VIAL IV SCH ×2 (00:47→05:23)
[2020-05-14] MEDS: LEVOTHYROXINE SODIUM 0.05 MG TABLET PO SCH (05:22)
[2020-05-14 07:25] LABS: ABSOLUTE LYMPHOCYTES (AUTO) 0.6 10^3/uL (0.5-4.7); ABSOLUTE MONOCYTES (AUTO) 0.5 10^3/uL (0.1-1.4); ABSOLUTE NEUT (AUTO) 5.9 10^3/uL (1.7-8.2); BASOPHILS % (AUTO) 0.4 % (0-2); EOSINOPHILS % (AUTO) 0.4 % (0-6); HEMATOCRIT 37.4 % (36.0-47.0); HEMOGLOBIN 12.3 g/dL (12.0-15.5); LYMPHOCYTES % (AUTO) 8.2 % (13-45); MEAN CORPUSCULAR HEMOGLOBIN 30.6 pg (27.0-33.4); MEAN CORPUSCULAR HGB CONC 32.9 g/dL (32.0-36.0); MEAN CORPUSCULAR VOLUME 93 fl (80-97); MONOCYTES % (AUTO) 7.1 % (3-13); PLATELET COUNT 144 10^3/uL (150-450); RED BLOOD COUNT 4.02 10^6/uL (3.72-5.28); RED CELL DISTRIBUTION WIDTH 14.8 % (11.5-14.0); SEGMENTED NEUTROPHILS % (AUTO) 83.9 % (42-78); TOTAL CELLS COUNTED % (AUTO) 100 %; WHITE BLOOD COUNT 7.1 10^3/uL (4.0-10.5)
[2020-05-14 07:37] LABS: ANION GAP 6 (5-19); BLOOD UREA NITROGEN 18 mg/dL (7-20); CALCIUM 9.2 mg/dL (8.4-10.2); CARBON DIOXIDE 28 mmol/L (22-30); CHLORIDE 103 mmol/L (98-107); GLUCOSE 129 mg/dL (75-110)
[2020-05-14 07:41] LABS: POTASSIUM 4.7 mmol/L (3.6-5.0)
[2020-05-14] MEDS ORDERED: METOPROLOL TARTRATE 25 MG TABLET PO SCH (07:45)
--- NOTE | 2020-05-14 08:29 | PDOC PROGRESS REPORT ---
Subjective Date:: 05/14/20 Subjective:: 89-year-old female with history of hypertension, hyperlipidemia and arthritis who is consulted to our service for atrial flutter and elevated troponins. The patient has been treated by her primary care provider, Dr. Romo, for an undefined respiratory illness for several months consisting of some shortness of breath and cough. Approximately 2 weeks ago her symptoms worsened and she felt she had a cold. Later she developed diarrhea as well as loss of appetite and a burning sensation across the chest that was constantly present for 3 days and that was alleviated with [place]. Yesterday she became more short of breath and decided to seek medical attention in our facility. In the emergency room she was found to be in rapid atrial flutter and was initially begun on a Cardizem drip which was stopped several hours later. This morning she denies chest discomfort but complains of mild shortness of breath. 05/14/2020: The patient had an uneventful night from the cardiovascular standpoint however her heart rate continues to be above goal. Per chart review, nursing staff was concerned about the possibility of aspiration after the patient started coughing during lunch therefore she was placed on an n.p.o. status. This morning she is resting comfortably in bed, sleeping but easily arousable. She did state that she felt palpitations and shortness of breath when she walked earlier to the bathroom and telemetry at that time demonstrated rapid atrial flutter with heart rate peaking at approximately 150 bpm. Physical exam on 05/14/2020: GENERAL: Obese. Pleasant and conversational. Oriented x3 with normal mood. Not in acute distress. Well groomed and well developed. HEENT: Normocephalic, atraumatic. Pupils equal. Sclerae anicteric. Orophar ynx moist. NECK: Difficult to evaluate for JVD given her body habitus. No carotid bruits. LUNGS: Very faint deep inspiratory wheezing bilaterally. Normal respiratory effort without the use of accessory muscles or intercostal retractions. CARDIOVASCULAR: Irregularly irregular rate and rhythm, no murmurs, rubs, or gallops. PMI not displaced. ABDOMEN: No masses or tenderness to palpation. No bruit. Difficult to assess for organomegaly given her body habitus. No abdominal aorta bruit noted. EXTREMITIES: Trace pitting edema bilaterally, no cyanosis, no clubbing. +2 pulses femoral and pedal pulses bilaterally. SKIN: No lesions or rashes. MUSCULOSKELETAL: No chest tenderness to palpation. NEUROLOGIC: Nonfocal. No gross sensory or motor deficits bilateral upper or lower extremities. Echocardiogram on May 12, 2020: -The patient was in rapid atrial flutter during the study. -EF 60 to 65%. -Cannot assess for diastolic function. -Mild biatrial enlargement. -Mildly decreased RV systolic function. -Mild to moderate MR, mild to moderate TR, mild to moderate PI. -Moderate pulmonary hypertension with pressures between 51 and 56 mmHg. Reason For Visit: DEHYDRATION Physical Exam Vital Signs: Temp Pulse Resp BP Pulse Ox 97.2 F 71 16 108/60 92 05/14/20 03:32 05/14/20 03:32 05/14/20 03:32 05/14/20 03:32 05/14/20 03:32 Intake & Output 05/12/20 05/13/20 05/14/20 06:59 06:59 06:59 Intake Total 2113 792 Output Total 200 300 Balance 1913 492 Weight 88.6 kg 88.5 kg Results Laboratory Results: 05/13/20 06:01 05/13/20 08:39 05/13/20 05/13/20 06:01 08:39 Sodium 140.3 137.0 Potassium 5.4 H 5.7 H Chloride 104 103 Carbon Dioxide 31 H 29 Anion Gap 5 5 BUN 15 15 Creatinine 0.93 0.90 Est GFR ( Amer) > 60 > 60 Glucose 152 H 179 H Calcium 9.5 9.5 Phosphorus 4.3 Magnesium 2.0 05/12/20 05/12/20 05/12/20 13:00 13:00 13:00 Creatine Kinase 45 CK-MB (CK-2) 1.90 Troponin I 0.024 Cancelled NT-Pro-B Natriuret Pep 2990 H 05/13/20 06:01 Creatine Kinase CK-MB (CK-2) Troponin I NT-Pro-B Natriuret Pep 2310 H Impressions: Chest X-Ray 05/13/20 00:00 IMPRESSION: Atelectasis versus focal pneumonia in the right lower lobe. Cannot exclude a limited left lower lobe pneumonia. 05/14/20 07:06 05/14/20 07:06 MCV 93 fl (80-97) 05/14/20 07:06 MCH 30.6 pg (27.0-33.4) 05/14/20 07:06 MCHC 32.9 g/dL (32.0-36.0) 05/14/20 07:06 RDW 14.8 % (11.5-14.0) H 05/14/20 07:06 Seg Neutrophils % 83.9 % (42-78) H 05/14/20 07:06 Carbonic Acid 1.58 mmol/L (1.05-1.35) H 05/12/20 15:45 HCO3/H2CO3 Ratio 17:1 05/12/20 15:45 ABG pH 7.34 (7.35-7.45) L 05/12/20 15:45 ABG pCO2 52.5 mmHg (35-45) H 05/12/20 15:45 ABG pO2 214.2 mmHg (80-100) H 05/12/20 15:45 ABG HCO3 27.9 mmol/L (20-24) H 05/12/20 15:45 ABG O2 Saturation 99.4 % (94-98) H 05/12/20 15:45 ABG Base Excess 1.2 mmol/L 05/12/20 15:45 FiO2 2L 05/12/20 15:45 Chloride 103 mmol/L (98-107) 05/14/20 07:06 Carbon Dioxide 28 mmol/L (22-30) 05/14/20 07:06 Anion Gap 6 (5-19) 05/14/20 07:06 Est GFR ( Amer) > 60 (>60) 05/14/20 07:06 Glucose 129 mg/dL (75-110) H 05/14/20 07:06 Calcium 9.2 mg/dL (8.4-10.2) 05/14/20 07:06 Phosphorus 4.3 mg/dL (2.5-4.5) 05/13/20 06:01 Magnesium 2.0 mg/dL (1.6-2.3) 05/13/20 06:01 Total Bilirubin 0.7 mg/dL (0.2-1.3) 05/12/20 13:00 AST 32 U/L (14-36) 05/12/20 13:00 Alkaline Phosphatase 80 U/L (38-126) 05/12/20 13:00 Total Protein 7.1 g/dL (6.3-8.2) 05/12/20 13:00 Albumin 3.9 g/dL (3.5-5.0) 05/12/20 13:00 05/12/20 05/12/20 05/12/20 13:00 13:00 13:00 Creatine Kinase 45 CK-MB (CK-2) 1.90 Troponin I 0.024 Cancelled NT-Pro-B Natriuret Pep 2990 H 05/13/20 06:01 Creatine Kinase CK-MB (CK-2) Troponin I NT-Pro-B Natriuret Pep 2310 H Current Medication List Generic Name Dose Route Start Last Admin Trade Name Freq PRN Reason Stop Dose Admin Acetaminophen 650 mg 05/12/20 17:42 Acetaminophen 325 Mg Tablet PO 06/11/20 17:41 Q4HP PRN FEVER >101 Albuterol 2 puff 05/13/20 18:38 Albuterol Sulfate Hfa (90 Mcg/Puff) 8 Gm Mdi IH 06/12/20 18:37 Q4HP PRN FOR WHEEZING Ampicillin Sodium/Sulbactam Sodium 3 gm 05/13/20 18:45 05/14/20 05:23 Ampicillin Sod/Sulbactam 3 Gm Vial IV 05/20/20 18:44 3 gm Q6 TEE Administration Apixaban 5 mg 05/13/20 22:00 05/13/20 22:33 Apixaban 5 Mg Tablet PO 06/12/20 21:59 5 mg BID TEE Administration Aspirin 81 mg 05/13/20 10:00 05/13/20 10:38 Aspirin 81 Mg Tablet, Ent Coated PO 06/12/20 09:59 81 mg DAILY TEE Administration Atorvastatin Calcium 20 mg 05/13/20 22:00 05/13/20 22:17 Atorvastatin Calcium 20 Mg Tablet PO 06/12/20 21:59 20 mg QHS TEE Administration Betamethasone/Clotrimazole 1 applic 05/13/20 16:30 Clotrimazole/Betamethasone Dip Cream 15 Gm TOP 06/12/20 16:29 BIDP PRN ITCHING Celecoxib 100 mg 05/13/20 16:30 05/13/20 16:30 Celecoxib 100 Mg Capsule PO 06/12/20 16:29 100 mg DAILY TEE Administration Dextrose 12.5 gm 05/13/20 14:45 Dextrose 50%-Water 25 Gm/50 Ml Disp.Syrin IV 06/12/20 14:44 PRN PRN FOR BG 50-69 IN ALERT PATIENT Protocol Dextrose 25 gm 05/13/20 14:45 Dextrose 50%-Water 25 Gm/50 Ml Disp.Syrin IV 06/12/20 14:44 PRN PRN See Label Comments Protocol Glucagon 1 mg 05/13/20 14:45 Glucagon,Human Recomb 1 Mg Inj SUBCUT 06/12/20 14:44 PRN PRN Evaluate for BG < 70 Protocol Glucose 15 gm 05/13/20 14:45 Dextrose 40% Gel 15 Gm Tube PO 06/12/20 14:44 PRN PRN For BG 50-69 in Alert Patient Protocol Glucose 30 gm 05/13/20 14:45 Dextrose 40% Gel 15 Gm Tube PO 06/12/20 14:44 PRN PRN FOR BG < 50 IN ALERT PATIENT Protocol Dextrose/Sodium Chloride 1,000 mls @ 75 mls/hr 05/12/20 17:42 D5-1/4ns 1000 Ml Iv Solution IV 06/11/20 17:41 CONTINUOUS PRN THIS MED IS NOT "PRN" Dextrose/Sodium Chloride 1,000 mls @ 50 mls/hr 05/13/20 18:38 05/13/20 20:11 D5-1/2ns 1000 Ml Iv Soln IV 06/12/20 18:37 50 mls/hr CONTINUOUS PRN Administration THIS MED IS NOT "PRN" Levothyroxine Sodium 0.05 mg 05/14/20 06:00 05/14/20 05:22 Levothyroxine Sodium 0.05 Mg Tablet PO 06/13/20 05:59 0.05 mg Q6AM TEE Administration Lisinopril 2.5 mg 05/14/20 10:00 Lisinopril 5 Mg Tablet PO 06/13/20 09:59 DAILY TEE Loperamide HCl 2 mg 05/13/20 12:10 Loperamide Hcl 2 Mg Capsule PO 06/12/20 12:09 Q4HP PRN DIARRHEA Metoprolol Tartrate 50 mg 05/14/20 08:00 Metoprolol Tartrate 50 Mg Tablet PO 06/13/20 07:59 Q6 TEE Discontinued Medications Generic Name Dose Route Start Last Admin Trade Name Freq PRN Reason Stop Dose Admin Adenosine Confirm 05/12/20 16:01 05/12/20 16:17 Adenosine Inj/Pf 6 Mg/2 Ml Sdv Administered 05/12/20 16:02 Not Given Dose 6 mg IV .STK-MED ONE Adenosine Confirm 05/12/20 16:07 05/12/20 16:17 Adenosine Inj/Pf 6 Mg/2 Ml Sdv Administered 05/12/20 16:08 Not Given Dose 6 mg IV .STK-MED ONE Adenosine 6 mg 05/12/20 16:14 05/12/20 16:02 Adenosine Inj/Pf 6 Mg/2 Ml Sdv IV 05/12/20 16:15 6 mg NOW ONE Administration Adenosine 12 mg 05/12/20 16:15 05/12/20 16:08 Adenosine Inj/Pf 6 Mg/2 Ml Sdv IV 05/12/20 16:16 12 mg NOW ONE Administration Ampicillin Sodium/Sulbactam Sodium Confirm 05/13/20 21:46 05/13/20 22:17 Ampicillin Sod/Sulbactam 3 Gm Vial Administered 05/13/20 21:47 Not Given Dose 3 gm .ROUTE .STK-MED ONE Carvedilol 3.125 mg 05/13/20 22:00 05/13/20 22:17 Carvedilol 3.125 Mg Tablet PO 06/12/20 21:59 3.125 mg Q12 TEE Administration Dexamethasone Sodium Phosphate 10 mg 05/12/20 14:18 05/12/20 15:32 Dexamethasone Sod Phos Inj 10 Mg/1 Ml Vial IV 05/12/20 14:19 10 mg NOW ONE Administration Diltiazem HCl 15 mg 05/12/20 16:12 05/12/20 16:25 Diltiazem Hcl Inj 25 Mg/5 Ml Vial IV 05/12/20 16:13 15 mg NOW ONE Administration Enoxaparin Sodium 40 mg 05/13/20 10:00 05/13/20 10:38 Enoxaparin Sodium Inj 40 Mg/0.4 Ml Disp.Syrin SUBCUT 06/12/20 09:59 40 mg DAILY TEE Administration Sodium Chloride 1,000 mls @ 0 mls/hr 05/12/20 13:15 05/12/20 18:31 Nacl 0.9% 1000 Ml Iv Soln IV 05/12/20 13:16 Infused BOLUS ONE Infusion Wide Open Sodium Chloride 1,000 mls @ 0 mls/hr 05/12/20 14:17 05/12/20 18:31 Nacl 0.9% 1000 Ml Iv Soln IV 05/12/20 14:18 Infused BOLUS ONE Infusion Wide Open Diltiazem HCl 125 mg in 125 mls @ 0 mls/hr 05/12/20 16:15 05/14/20 04:44 Cardizem Rtu Inj 125 Mg-D5w 125 Ml Premix IV 06/11/20 16:14 Infused CONTINUOUS PRN Titration THIS MED IS NOT "PRN" Protocol Titrate Metoprolol Tartrate 25 mg 05/14/20 07:45 Metoprolol Tartrate 25 Mg Tablet PO 06/13/20 07:44 Q6 TEE Sodium Polystyrene Sulfonate 15 gm 05/13/20 12:20 05/13/20 16:32 Sodium Polystyrene Sulfonate 15 Gm/60 Ml PO 05/13/20 12:21 15 gm NOW ONE Administration Sodium Polystyrene Sulfonate 15 gm 05/13/20 17:59 05/13/20 18:05 Sodium Polystyrene Sulfonate 15 Gm/60 Ml PO 05/13/20 18:00 Not Given NOW ONE Sodium Polystyrene Sulfonate Confirm 05/13/20 16:26 05/13/20 16:31 Sodium Polystyrene Sulfonate 15 Gm/60 Ml Administered 05/13/20 16:27 Not Given Dose 15 gm .ROUTE .STK-MED ONE Assessment & Plan - Diagnosis (1) Atrial flutter by electrocardiogram Is this a current diagnosis for this admission?: Yes Plan: Unfortunately her heart rate continues to be above goal with her blood pressure well controlled. She continues to be symptomatic with significant shortness of breath with minimal physical activity and a very rapid ventricular response which was at least 150 bpm this morning when she got up to go to the bathroom. I discussed with the patient both a rhythm control strategy versus rate control strategy as well as anticoagulation. At this point the patient agreed to proceed with rate control particularly given the possibility of a left lower lobe pneumonia on chest x-ray yesterday and the possibility of aspiration also. In order to avoid hypotension we will discontinue Coreg and start metoprolol as depicted below. If she continues to have RVR I would have a low threshold to transfer her to [facility] where electrophysiology service is available for consideration of transesophageal echocardiogram guided cardioversion. Recommendations: -Discontinue Coreg. -Start metoprolol tartrate 50 mg p.o. every 6, hold for systolic blood pressure less than 100 mmHg and/or heart rate below 60 bpm. -Continue with Eliquis 5 mg p.o. twice daily. -Low threshold to transfer to [facility] if heart rate continues to be uncontrolled. -Pharmacological nuclear stress test once the patient is clinically improved. (2) Heart failure with preserved ejection fraction Qualifiers: Heart failure chronicity: acute Qualified Code(s): I50.31 - Acute diastolic (congestive) heart failure Is this a current diagnosis for this admission?: Yes Plan: Her echocardiogram demonstrated a normal ejection fraction but unfortunately diastolic function could not be assessed due to the presence of rapid atrial fibrillation/flutter. There was also mild RV systolic dysfunction. She will eventually need ischemic assessment once clinically improved. Recommendations: -Diuresis with Lasix 20 mg IV twice daily, first dose now.. -Delete -Restrict fluid intake to 1500 cc daily. -Low sodium diet, less than 1500 mg daily. -Strict intake and output. -Daily weights. -Daily BMP and magnesium and replace electrolytes as needed. -Pharmacological nuclear stress test once the patient is clinically improved. (3) Hypertension Qualifiers: Hypertension type: essential hypertension Qualified Code(s): I10 - Essential (primary) hypertension Is this a current diagnosis for this admission?: Yes Plan: Her blood pressure is at goal. I will defer further management to the primary team.
[2020-05-14] MEDS: CELECOXIB 100 MG CAPSULE PO SCH (09:27)
[2020-05-14] MEDS: APIXABAN 5 MG TABLET PO SCH ×2 (09:27→17:50)
[2020-05-14] MEDS: LISINOPRIL 5 MG TABLET PO SCH (09:27)
[2020-05-14] MEDS: FUROSEMIDE INJ/PF 20 MG/2 ML SDV IV SCH ×2 (09:27→21:47)
[2020-05-14] MEDS: ASPIRIN 81 MG TABLET, ENT COATED PO SCH (09:27)
[2020-05-14] MEDS: METOPROLOL TARTRATE 50 MG TABLET PO SCH ×3 (09:28→17:57)
--- NOTE | 2020-05-14 11:39 | PDOC PROGRESS REPORT ---
Subjective Date:: 05/14/20 Reason For Visit: patient denies CP/SOB, HR increases with minimal exertion per RN, cardizem drip stopped earlier this am Physical Exam Vital Signs: Temp Pulse Resp BP Pulse Ox 97.2 F 148 H 18 115/68 77 L 05/14/20 09:17 05/14/20 08:02 05/14/20 08:02 05/14/20 08:02 05/14/20 08:02 Intake & Output 05/13/20 05/14/20 05/15/20 06:59 06:59 06:59 Intake Total 2113 792 Output Total 200 300 Balance 1913 492 Weight 88.6 kg 88.5 kg General appearance: PRESENT: no acute distress Mouth exam: PRESENT: moist Respiratory exam: PRESENT: crackles - in BLL R > L, rhonchi Cardiovascular exam: PRESENT: irregular rhythm. ABSENT: systolic murmur, tachycardia GI/Abdominal exam: PRESENT: normal bowel sounds, soft Results Laboratory Results: 05/14/20 07:06 05/14/20 07:06 05/14/20 05/14/20 07:06 07:06 WBC 7.1 RBC 4.02 Hgb 12.3 Hct 37.4 MCV 93 MCH 30.6 MCHC 32.9 RDW 14.8 H Plt Count 144 L Seg Neutrophils % 83.9 H Sodium 137.0 Potassium 4.7 D Chloride 103 Carbon Dioxide 28 Anion Gap 6 BUN 18 Creatinine 0.89 Est GFR ( Amer) > 60 Glucose 129 H Calcium 9.2 05/12/20 05/12/20 05/12/20 13:00 13:00 13:00 Creatine Kinase 45 CK-MB (CK-2) 1.90 Troponin I 0.024 Cancelled NT-Pro-B Natriuret Pep 2990 H 05/13/20 06:01 Creatine Kinase CK-MB (CK-2) Troponin I NT-Pro-B Natriuret Pep 2310 H Impressions: Chest X-Ray 05/13/20 00:00 IMPRESSION: Atelectasis versus focal pneumonia in the right lower lobe. Cannot exclude a limited left lower lobe pneumonia. Assessment and Plan - Diagnosis (1) Acute CHF (congestive heart failure) Qualifiers: Heart failure type: unspecified Is this a current diagnosis for this admission?: Yes (2) Atrial flutter by electrocardiogram Is this a current diagnosis for this admission?: Yes (3) Acute diarrhea Is this a current diagnosis for this admission?: Yes (4) Dehydration Is this a current diagnosis for this admission?: Yes (5) Aspiration pneumonia due to food (regurgitated) Is this a current diagnosis for this admission?: Yes - Plan Summary Summary: 1. acute CHF exacerbation with atrial flutter: new for patient, echo with preserved EF, weaned off cardizem drip, continues to have an irregular rhythm, Dr. Phillips following, switched from coreg to metoprolol for better rate control. If unable to be converted with medications, might need inpatient [facility] cardioversion. Outpatient heart cath/stress test per cardiology 2. Diarrhea/Viral: no recent antibiotic use > 3BMs per day, C. diff pending, no BM since last night. Low dose IVF started 3. OA/Hypertension: home meds reconciled 4. aspiration pneumonia: NPO now, [employer] eval placed. IF still lack of services this weekend, then trial mechanical soft with nectar. if tolerating PO, IVF may be discontinued. She is on room air - Time Time Spent with patient: 15-24 minutes Anticipated Discharge Disposition: Home, Self Care Anticipated Discharge Timeframe: within 72 hours
[2020-05-14] MEDS: AMPICILLIN SODIUM/SULBACTAM NA 3 GM in NORMAL SALINE 100 ML IV SCH ×2 (13:37→17:50)
[2020-05-14] MEDS: ATORVASTATIN CALCIUM 20 MG TABLET PO SCH (21:45)
[2020-05-15] MEDS: AMPICILLIN SODIUM/SULBACTAM NA 3 GM in NORMAL SALINE 100 ML IV SCH ×2 (00:35→05:35)
[2020-05-15] MEDS: METOPROLOL TARTRATE 50 MG TABLET PO SCH ×3 (00:38→09:20)
[2020-05-15] MEDS: LEVOTHYROXINE SODIUM 0.05 MG TABLET PO SCH (05:35)
[2020-05-15 07:04] LABS: ABSOLUTE EOSINOPHILS # (AUTO) 0.1 10^3/uL (0.0-0.6); ABSOLUTE LYMPHOCYTES (AUTO) 1.6 10^3/uL (0.5-4.7); ABSOLUTE MONOCYTES (AUTO) 0.7 10^3/uL (0.1-1.4); ABSOLUTE NEUT (AUTO) 4.5 10^3/uL (1.7-8.2); BASOPHILS % (AUTO) 0.3 % (0-2); EOSINOPHILS % (AUTO) 1.8 % (0-6); HEMATOCRIT 36.5 % (36.0-47.0); LYMPHOCYTES % (AUTO) 22.7 % (13-45); MEAN CORPUSCULAR HEMOGLOBIN 30.7 pg (27.0-33.4); MEAN CORPUSCULAR VOLUME 93 fl (80-97); MONOCYTES % (AUTO) 10.3 % (3-13); PLATELET COUNT 154 10^3/uL (150-450); RED BLOOD COUNT 3.92 10^6/uL (3.72-5.28); RED CELL DISTRIBUTION WIDTH 15.3 % (11.5-14.0); SEGMENTED NEUTROPHILS % (AUTO) 64.9 % (42-78); TOTAL CELLS COUNTED % (AUTO) 100 %; WHITE BLOOD COUNT 6.9 10^3/uL (4.0-10.5)
[2020-05-15 07:35] LABS: ALBUMIN 3.2 g/dL (3.5-5.0); ALKALINE PHOSPHATASE 63 U/L (38-126); ASPARTATE AMINO TRANSFERASE 28 U/L (14-36); BILIRUBIN,DIRECT 0.3 mg/dL (0.0-0.4); BILIRUBIN,TOTAL 0.6 mg/dL (0.2-1.3); BLOOD UREA NITROGEN 23 mg/dL (7-20); CALCIUM 8.7 mg/dL (8.4-10.2); GLUCOSE 95 mg/dL (75-110); POTASSIUM 4.2 mmol/L (3.6-5.0); TOTAL PROTEIN 5.9 g/dL (6.3-8.2)
[2020-05-15 07:41] LABS: CARBON DIOXIDE 37 mmol/L (22-30); CHLORIDE 99 mmol/L (98-107)
--- NOTE | 2020-05-15 07:41 | PDOC PROGRESS REPORT ---
Subjective Date:: 05/15/20 Subjective:: 89-year-old female with history of hypertension, hyperlipidemia and arthritis who is consulted to our service for atrial flutter and elevated troponins. The patient has been treated by her primary care provider, Dr. Romo, for an undefined respiratory illness for several months consisting of some shortness of breath and cough. Approximately 2 weeks ago her symptoms worsened and she felt she had a cold. Later she developed diarrhea as well as loss of appetite and a burning sensation across the chest that was constantly present for 3 days and that was alleviated with [place]. Yesterday she became more short of breath and decided to seek medical attention in our facility. In the emergency room she was found to be in rapid atrial flutter and was initially begun on a Cardizem drip which was stopped several hours later. This morning she denies chest discomfort but complains of mild shortness of breath. 05/15/2020: The patient had an uneventful night from the cardiovascular standpoint. She has received a total of 3 doses of Lopressor which resulted in a controlled heart rate. She only received one dose of lasix IV as the second dose was held due to hypotension and had a urinary output of 1800 ml however she did get more than 1500 ml of fluid yesterday therefore her net fluid balance continues to be positive. Although she states that she feels better she continues to be visibly short of breath and had been placed on IV antibiotics for suspected aspiration pneumonia. Physical exam on 05/15/2020: GENERAL: Obese. Pleasant and conversational. Oriented x3 with normal mood. Visibly short of breath however unchanged from yesterday. Well groomed and well developed. HEENT: Normocephalic, atraumatic. Pupils equal. Sclerae anicteric. Oropha rynx moist. NECK: Difficult to evaluate for JVD given her body habitus. No carotid bruits. LUNGS: Clear to auscultation bilaterally. Normal respiratory effort without the use of accessory muscles or intercostal retractions. CARDIOVASCULAR: Irregularly irregular rate and rhythm, no murmurs, rubs, or gallops. PMI not displaced. ABDOMEN: No masses or tenderness to palpation. No bruit. Difficult to assess for organomegaly given her body habitus. No abdominal aorta bruit noted. EXTREMITIES: Trace pitting edema bilaterally, no cyanosis, no clubbing. +2 pulses femoral and pedal pulses bilaterally. SKIN: No lesions or rashes. MUSCULOSKELETAL: No chest tenderness to palpation. NEUROLOGIC: Nonfocal. No gross sensory or motor deficits bilateral upper or lower extremities. Echocardiogram on May 12, 2020: -The patient was in rapid atrial flutter during the study. -EF 60 to 65%. -Cannot assess for diastolic function. -Mild biatrial enlargement. -Mildly decreased RV systolic function. -Mild to moderate MR, mild to moderate TR, mild to moderate PI. -Moderate pulmonary hypertension with pressures between 51 and 56 mmHg. Reason For Visit: DEHYDRATION Physical Exam Vital Signs: Temp Pulse Resp BP Pulse Ox 97.9 F 76 19 119/69 95 05/15/20 03:33 05/15/20 03:33 05/15/20 03:33 05/15/20 03:33 05/15/20 03:33 Intake & Output 05/13/20 05/14/20 05/15/20 06:59 06:59 06:59 Intake Total 2113 792 1590 Output Total 066 551 0458 Balance 1913 492 -210 Weight 88.6 kg 88.5 kg Results Laboratory Results: 05/14/20 07:06 05/14/20 07:06 05/14/20 05/14/20 07:06 07:06 WBC 7.1 RBC 4.02 Hgb 12.3 Hct 37.4 MCV 93 MCH 30.6 MCHC 32.9 RDW 14.8 H Plt Count 144 L Seg Neutrophils % 83.9 H Sodium 137.0 Potassium 4.7 D Chloride 103 Carbon Dioxide 28 Anion Gap 6 BUN 18 Creatinine 0.89 Est GFR ( Amer) > 60 Glucose 129 H Calcium 9.2 05/12/20 05/12/20 05/12/20 13:00 13:00 13:00 Creatine Kinase 45 CK-MB (CK-2) 1.90 Troponin I 0.024 Cancelled NT-Pro-B Natriuret Pep 2990 H 05/13/20 06:01 Creatine Kinase CK-MB (CK-2) Troponin I NT-Pro-B Natriuret Pep 2310 H Impressions: Chest X-Ray 05/13/20 00:00 IMPRESSION: Atelectasis versus focal pneumonia in the right lower lobe. Cannot exclude a limited left lower lobe pneumonia. 05/15/20 05:47 MCV 93 fl (80-97) 05/15/20 05:47 MCH 30.7 pg (27.0-33.4) 05/15/20 05:47 MCHC 33.0 g/dL (32.0-36.0) 05/15/20 05:47 RDW 15.3 % (11.5-14.0) H 05/15/20 05:47 Seg Neutrophils % 64.9 % (42-78) 05/15/20 05:47 Carbonic Acid 1.58 mmol/L (1.05-1.35) H 05/12/20 15:45 HCO3/H2CO3 Ratio 17:1 05/12/20 15:45 ABG pH 7.34 (7.35-7.45) L 05/12/20 15:45 ABG pCO2 52.5 mmHg (35-45) H 05/12/20 15:45 ABG pO2 214.2 mmHg (80-100) H 05/12/20 15:45 ABG HCO3 27.9 mmol/L (20-24) H 05/12/20 15:45 ABG O2 Saturation 99.4 % (94-98) H 05/12/20 15:45 ABG Base Excess 1.2 mmol/L 05/12/20 15:45 FiO2 2L 05/12/20 15:45 Chloride 103 mmol/L (98-107) 05/14/20 07:06 Carbon Dioxide 28 mmol/L (22-30) 05/14/20 07:06 Anion Gap 6 (5-19) 05/14/20 07:06 Est GFR ( Amer) > 60 (>60) 05/14/20 07:06 Glucose 129 mg/dL (75-110) H 05/14/20 07:06 Calcium 9.2 mg/dL (8.4-10.2) 05/14/20 07:06 Phosphorus 4.3 mg/dL (2.5-4.5) 05/13/20 06:01 Magnesium 2.0 mg/dL (1.6-2.3) 05/13/20 06:01 Total Bilirubin 0.7 mg/dL (0.2-1.3) 05/12/20 13:00 AST 32 U/L (14-36) 05/12/20 13:00 Alkaline Phosphatase 80 U/L (38-126) 05/12/20 13:00 Total Protein 7.1 g/dL (6.3-8.2) 05/12/20 13:00 Albumin 3.9 g/dL (3.5-5.0) 05/12/20 13:00 05/12/20 05/12/20 05/12/20 13:00 13:00 13:00 Creatine Kinase 45 CK-MB (CK-2) 1.90 Troponin I 0.024 Cancelled NT-Pro-B Natriuret Pep 2990 H 05/13/20 06:01 Creatine Kinase CK-MB (CK-2) Troponin I NT-Pro-B Natriuret Pep 2310 H Current Medication List Generic Name Dose Route Start Last Admin Trade Name Freq PRN Reason Stop Dose Admin Acetaminophen 650 mg 05/12/20 17:42 Acetaminophen 325 Mg Tablet PO 06/11/20 17:41 Q4HP PRN FEVER >101 Albuterol 2 puff 05/13/20 18:38 Albuterol Sulfate Hfa (90 Mcg/Puff) 8 Gm Mdi IH 06/12/20 18:37 Q4HP PRN FOR WHEEZING Apixaban 5 mg 05/13/20 22:00 05/14/20 17:50 Apixaban 5 Mg Tablet PO 06/12/20 21:59 5 mg BID TEE Administration Aspirin 81 mg 05/13/20 10:00 05/14/20 09:27 Aspirin 81 Mg Tablet, Ent Coated PO 06/12/20 09:59 81 mg DAILY TEE Administration Atorvastatin Calcium 20 mg 05/13/20 22:00 05/14/20 21:45 Atorvastatin Calcium 20 Mg Tablet PO 06/12/20 21:59 20 mg QHS TEE Administration Betamethasone/Clotrimazole 1 applic 05/13/20 16:30 Clotrimazole/Betamethasone Dip Cream 15 Gm TOP 06/12/20 16:29 BIDP PRN ITCHING Celecoxib 100 mg 05/13/20 16:30 05/14/20 09:27 Celecoxib 100 Mg Capsule PO 06/12/20 16:29 100 mg DAILY TEE Administration Furosemide 20 mg 05/14/20 10:00 05/14/20 21:47 Furosemide Inj/Pf 20 Mg/2 Ml Sdv IV 06/13/20 09:59 Not Given Q12 TEE Ampicillin Sodium/Sulbactam 100 mls @ 100 mls/hr 05/14/20 12:00 05/15/20 05:35 Sodium 3 gm/ Sodium Chloride IV 05/21/20 11:59 100 mls/hr Q6 TEE Administration Levothyroxine Sodium 0.05 mg 05/14/20 06:00 05/15/20 05:35 Levothyroxine Sodium 0.05 Mg Tablet PO 06/13/20 05:59 0.05 mg Q6AM TEE Administration Lisinopril 2.5 mg 05/14/20 10:00 05/14/20 09:27 Lisinopril 5 Mg Tablet PO 06/13/20 09:59 2.5 mg DAILY TEE Administration Loperamide HCl 2 mg 05/13/20 12:10 Loperamide Hcl 2 Mg Capsule PO 06/12/20 12:09 Q4HP PRN DIARRHEA Metoprolol Tartrate 50 mg 05/14/20 08:00 05/15/20 05:35 Metoprolol Tartrate 50 Mg Tablet PO 06/13/20 07:59 50 mg Q6 TEE Administration Discontinued Medications Generic Name Dose Route Start Last Admin Trade Name Freq PRN Reason Stop Dose Admin Adenosine Confirm 05/12/20 16:01 05/12/20 16:17 Adenosine Inj/Pf 6 Mg/2 Ml Sdv Administered 05/12/20 16:02 Not Given Dose 6 mg IV .STK-MED ONE Adenosine Confirm 05/12/20 16:07 05/12/20 16:17 Adenosine Inj/Pf 6 Mg/2 Ml Sdv Administered 05/12/20 16:08 Not Given Dose 6 mg IV .STK-MED ONE Adenosine 6 mg 05/12/20 16:14 05/12/20 16:02 Adenosine Inj/Pf 6 Mg/2 Ml Sdv IV 05/12/20 16:15 6 mg NOW ONE Administration Adenosine 12 mg 05/12/20 16:15 05/12/20 16:08 Adenosine Inj/Pf 6 Mg/2 Ml Sdv IV 05/12/20 16:16 12 mg NOW ONE Administration Ampicillin Sodium/Sulbactam Sodium 3 gm 05/13/20 18:45 05/14/20 05:23 Ampicillin Sod/Sulbactam 3 Gm Vial IV 05/20/20 18:44 3 gm Q6 TEE Administration Ampicillin Sodium/Sulbactam Sodium Confirm 05/13/20 21:46 05/13/20 22:17 Ampicillin Sod/Sulbactam 3 Gm Vial Administered 05/13/20 21:47 Not Given Dose 3 gm .ROUTE .STK-MED ONE Carvedilol 3.125 mg 05/13/20 22:00 05/13/20 22:17 Carvedilol 3.125 Mg Tablet PO 06/12/20 21:59 3.125 mg Q12 TEE Administration Dexamethasone Sodium Phosphate 10 mg 05/12/20 14:18 05/12/20 15:32 Dexamethasone Sod Phos Inj 10 Mg/1 Ml Vial IV 05/12/20 14:19 10 mg NOW ONE Administration Diltiazem HCl 15 mg 05/12/20 16:12 05/12/20 16:25 Diltiazem Hcl Inj 25 Mg/5 Ml Vial IV 05/12/20 16:13 15 mg NOW ONE Administration Enoxaparin Sodium 40 mg 05/13/20 10:00 05/13/20 10:38 Enoxaparin Sodium Inj 40 Mg/0.4 Ml Disp.Syrin SUBCUT 06/12/20 09:59 40 mg DAILY TEE Administration Sodium Chloride 1,000 mls @ 0 mls/hr 05/12/20 13:15 05/12/20 18:31 Nacl 0.9% 1000 Ml Iv Soln IV 05/12/20 13:16 Infused BOLUS ONE Infusion Wide Open Sodium Chloride 1,000 mls @ 0 mls/hr 05/12/20 14:17 05/12/20 18:31 Nacl 0.9% 1000 Ml Iv Soln IV 05/12/20 14:18 Infused BOLUS ONE Infusion Wide Open Diltiazem HCl 125 mg in 125 mls @ 0 mls/hr 05/12/20 16:15 05/14/20 04:44 Cardizem Rtu Inj 125 Mg-D5w 125 Ml Premix IV 06/11/20 16:14 Infused CONTINUOUS PRN Titration THIS MED IS NOT "PRN" Protocol Titrate Dextrose/Sodium Chloride 1,000 mls @ 75 mls/hr 05/12/20 17:42 D5-1/4ns 1000 Ml Iv Solution IV 06/11/20 17:41 CONTINUOUS PRN THIS MED IS NOT "PRN" Dextrose/Sodium Chloride 1,000 mls @ 50 mls/hr 05/13/20 18:38 05/14/20 19:05 D5-1/2ns 1000 Ml Iv Soln IV 06/12/20 18:37 Infused CONTINUOUS PRN Infusion THIS MED IS NOT "PRN" Metoprolol Tartrate 25 mg 05/14/20 07:45 Metoprolol Tartrate 25 Mg Tablet PO 06/13/20 07:44 Q6 TEE Sodium Polystyrene Sulfonate 15 gm 05/13/20 12:20 05/13/20 16:32 Sodium Polystyrene Sulfonate 15 Gm/60 Ml PO 05/13/20 12:21 15 gm NOW ONE Administration Sodium Polystyrene Sulfonate 15 gm 05/13/20 17:59 05/13/20 18:05 Sodium Polystyrene Sulfonate 15 Gm/60 Ml PO 05/13/20 18:00 Not Given NOW ONE Sodium Polystyrene Sulfonate Confirm 05/13/20 16:26 05/13/20 16:31 Sodium Polystyrene Sulfonate 15 Gm/60 Ml Administered 05/13/20 16:27 Not Given Dose 15 gm .ROUTE .STK-MED ONE Assessment & Plan - Diagnosis (1) Atrial flutter by electrocardiogram Is this a current diagnosis for this admission?: Yes Plan: She continues to be in atrial flutter however her heart rate is now well controlled after only 3 doses of Lopressor 50 mg. She is anticoagulated without bleeding complications. Recommendations: -Continue with rate control strategy. -We will change her Lopressor from 50 p.o. every 6 hours to 50 mg twice daily and we will titrate it up as needed to maintain heart rate at goal. -Continue with anticoagulation. Delete continue with Eliquis 5 mg p.o. twice daily. -Pharmacological nuclear stress test once the patient is clinically improved. (2) Heart failure with preserved ejection fraction Qualifiers: Heart failure chronicity: acute Qualified Code(s): I50.31 - Acute diastolic (congestive) heart failure Is this a current diagnosis for this admission?: Yes Plan: Her echocardiogram demonstrated a normal ejection fraction but unfortunately diastolic function could not be assessed due to the presence of rapid atrial fibrillation/flutter. She diuresed very well with only 20 mg of Lasix IV but unfortunately her second dose was not given due to low blood pressure. Her fluid balance continues to be positive however her lungs are clear to auscultation even though she continues to be visibly short of breath which may be multifactorial to include her weight, moderate pulmonary hypertension, heart failure and possible development of pneumonia among other issues. Recommendations: -Continue diuresis with Lasix 20 mg IV twice daily. -Repeat chest x-ray today. -Repeat proBNP today. -Restrict fluid intake to 1500 cc daily. -Low sodium diet, less than 1500 mg daily. -Strict intake and output. -Daily weights. -Daily BMP and magnesium and replace electrolytes as needed. -Pharmacological nuclear stress test once the patient is clinically improved. (3) Hypertension Qualifiers: Hypertension type: essential hypertension Qualified Code(s): I10 - Essential (primary) hypertension Is this a current diagnosis for this admission?: Yes Plan: Her blood pressure is at goal. I will defer further management to the primary team.
[2020-05-15 07:46] LABS: ANION GAP 2 (5-19)
--- NOTE | 2020-05-15 08:56 | RADIOLOGY REPORT (SQ) ---
EXAM DESCRIPTION: CHEST SINGLE VIEW IMAGES COMPLETED DATE/TIME: 05/15/2020 8:25 am REASON FOR STUDY: hypoxemia COMPARISON: 05/13/2020 EXAM PARAMETERS: NUMBER OF VIEWS: One view. TECHNIQUE: Single frontal radiographic view of the chest acquired. RADIATION DOSE: NA LIMITATIONS: None. FINDINGS: LUNGS AND PLEURA: Stable pulmonary exam demonstrating low lung volumes with bibasilar atel ectasis versus consolidation. Small bilateral pleural effusions may be present. No pneumothorax. MEDIASTINUM AND HILAR STRUCTURES: No masses. Contour normal. HEART AND VASCULAR STRUCTURES: Heart normal in size. Normal vasculature. BONES: No acute findings. HARDWARE: None in the chest. OTHER: No other significant finding. IMPRESSION: Stable pulmonary examination demonstrating low lung volumes with bibasilar atelectasis v ersus consolidation. TECHNICAL DOCUMENTATION: JOB ID: [id number] 2010 [employer]- All Rights Reserved Reading location - IP/workstation name: [email or web address]
[2020-05-15] MEDS: ASPIRIN 81 MG TABLET, ENT COATED PO SCH (09:20)
[2020-05-15] MEDS: APIXABAN 5 MG TABLET PO SCH ×2 (09:20→18:05)
[2020-05-15] MEDS: FUROSEMIDE INJ/PF 20 MG/2 ML SDV IV SCH (09:20)
[2020-05-15] MEDS: LISINOPRIL 5 MG TABLET PO SCH (09:21)
[2020-05-15] MEDS: FAMOTIDINE 20 MG TABLET PO SCH (09:21)
[2020-05-15] MEDS: CELECOXIB 100 MG CAPSULE PO SCH (09:21)
[2020-05-15] MEDS: AMOXICILLIN TR/POT CLAVULANATE 875-125 MG TAB PO SCH (09:27)
--- NOTE | 2020-05-15 19:43 | PDOC PROGRESS REPORT ---
Subjective Date:: 05/15/20 Subjective:: patient is having diarrhea again, non fowl smelling Reason For Visit: DEHYDRATION Physical Exam Vital Signs: Temp Pulse Resp BP Pulse Ox 98.8 F 86 16 102/60 97 05/15/20 16:00 05/15/20 16:00 05/15/20 16:00 05/15/20 16:00 05/15/20 16:00 Intake & Output 05/14/20 05/15/20 05/16/20 06:59 06:59 06:59 Intake Total 792 1650 380 Output Total 300 1800 Balance 492 -150 380 Weight 88.5 kg 87.6 kg General appearance: PRESENT: no acute distress Respiratory exam: PRESENT: rhonchi - in RLL on 2L Cardiovascular exam: PRESENT: irregular rhythm, other - atrial flutter Results Laboratory Results: 05/15/20 05:47 05/15/20 05:47 05/15/20 05/15/20 05:47 05:47 WBC 6.9 RBC 3.92 Hgb 12.0 Hct 36.5 MCV 93 MCH 30.7 MCHC 33.0 RDW 15.3 H Plt Count 154 Seg Neutrophils % 64.9 Sodium 138.4 Potassium 4.2 Chloride 99 Carbon Dioxide 37 H Anion Gap 2 L BUN 23 H Creatinine 1.19 Est GFR ( Amer) 52 L Glucose 95 Calcium 8.7 Total Bilirubin 0.6 AST 28 Alkaline Phosphatase 63 Total Protein 5.9 L Albumin 3.2 L 05/12/20 05/12/20 05/12/20 13:00 13:00 13:00 Creatine Kinase 45 CK-MB (CK-2) 1.90 Troponin I 0.024 Cancelled NT-Pro-B Natriuret Pep 2990 H 05/13/20 05/15/20 06:01 05:47 Creatine Kinase CK-MB (CK-2) Troponin I NT-Pro-B Natriuret Pep 2310 H 3700 H Impressions: Chest X-Ray 05/15/20 00:00 IMPRESSION: Stable pulmonary examination demonstrating low lung volumes with bibasilar atelectasis versus consolidation. Assessment and Plan - Diagnosis (1) Acute CHF (congestive heart failure) Qualifiers: Heart failure type: unspecified Is this a current diagnosis for this admission?: Yes (2) Atrial flutter by electrocardiogram Is this a current diagnosis for this admission?: Yes (3) Acute diarrhea Is this a current diagnosis for this admission?: Yes (4) Dehydration Is this a current diagnosis for this admission?: Yes (5) Aspiration pneumonia due to food (regurgitated) Is this a current diagnosis for this admission?: Yes - Plan Summary Summary: 1. acute CHF exacerbation with atrial flutter: new for patient, echo with preserved EF, weaned off cardizem drip, continues to have an irregular rhythm, Dr. Phillips following, switched from coreg to metoprolol for better rate control. If unable to be converted with medications, might need inpatient KAYLA cardioversion. Outpatient heart cath/stress test per cardiology 2. Diarrhea/Viral: no recent antibiotic use > 3BMs per day, C. diff pending, no BM since last night. imodium 3. OA/Hypertension: home meds reconciled 4. aspiration pneumonia with acute hypoxc respiratory failure: mechanical soft [employer] eval placed. Dispo anticipate DC on saturday - Time Time Spent with patient: 15-24 minutes Anticipated Discharge Disposition: Home with Home Health Anticipated Discharge Timeframe: within 48 hours
[2020-05-16] MEDS: FUROSEMIDE INJ/PF 20 MG/2 ML SDV IV SCH ×3 (02:17→21:22)
[2020-05-16] MEDS: METOPROLOL TARTRATE 50 MG TABLET PO SCH ×3 (02:18→21:23)
[2020-05-16] MEDS: AMOXICILLIN TR/POT CLAVULANATE 875-125 MG TAB PO SCH ×3 (02:18→21:23)
[2020-05-16] MEDS: ATORVASTATIN CALCIUM 20 MG TABLET PO SCH ×2 (02:18→21:23)
[2020-05-16] MEDS: LEVOTHYROXINE SODIUM 0.05 MG TABLET PO SCH (06:21)
[2020-05-16 06:34] LABS: ABSOLUTE EOSINOPHILS # (AUTO) 0.1 10^3/uL (0.0-0.6); ABSOLUTE LYMPHOCYTES (AUTO) 1.4 10^3/uL (0.5-4.7); ABSOLUTE MONOCYTES (AUTO) 0.9 10^3/uL (0.1-1.4); ABSOLUTE NEUT (AUTO) 5.2 10^3/uL (1.7-8.2); BASOPHILS % (AUTO) 0.3 % (0-2); EOSINOPHILS % (AUTO) 1.7 % (0-6); HEMATOCRIT 36.7 % (36.0-47.0); LYMPHOCYTES % (AUTO) 18.9 % (13-45); MEAN CORPUSCULAR HEMOGLOBIN 30.7 pg (27.0-33.4); MEAN CORPUSCULAR HGB CONC 32.8 g/dL (32.0-36.0); MEAN CORPUSCULAR VOLUME 94 fl (80-97); MONOCYTES % (AUTO) 11.5 % (3-13); PLATELET COUNT 138 10^3/uL (150-450); RED BLOOD COUNT 3.92 10^6/uL (3.72-5.28); RED CELL DISTRIBUTION WIDTH 15.2 % (11.5-14.0); SEGMENTED NEUTROPHILS % (AUTO) 67.6 % (42-78); TOTAL CELLS COUNTED % (AUTO) 100 %; WHITE BLOOD COUNT 7.6 10^3/uL (4.0-10.5)
[2020-05-16 07:00] LABS: ALBUMIN 3.4 g/dL (3.5-5.0); ALKALINE PHOSPHATASE 68 U/L (38-126); ASPARTATE AMINO TRANSFERASE 30 U/L (14-36); BILIRUBIN,DIRECT 0.2 mg/dL (0.0-0.4); BILIRUBIN,TOTAL 0.5 mg/dL (0.2-1.3); BLOOD UREA NITROGEN 27 mg/dL (7-20); CALCIUM 8.6 mg/dL (8.4-10.2); CARBON DIOXIDE 37 mmol/L (22-30); CHLORIDE 99 mmol/L (98-107); GLUCOSE 109 mg/dL (75-110); POTASSIUM 4.2 mmol/L (3.6-5.0); TOTAL PROTEIN 6.1 g/dL (6.3-8.2)
[2020-05-16 07:15] LABS: ANION GAP 4 (5-19)
--- NOTE | 2020-05-16 09:45 | CDI QUERY ---
CDI Query CDI Review: We are seeking further clarification of documentation to reflect the severity of illness of your patient. Per Cardiology Consult Note: (2) Heart failure with preserved ejection fraction Qualifiers: Heart failure chronicity: acute Qualified Code(s): I50.31 - Acute diastolic (congestive) heart failure Is this a current diagnosis for this admission?: Yes Per Progress Notes: (1) Acute CHF (congestive heart failure) Qualifiers: Heart failure type: unspecified Is this a current diagnosis for this admission?: Yes Based on your medical judgement if you agree with the Cardiology Consult please include the Type of Heart Failure in the Progress Notes and in the Discharge Summary: Type of heart failure: Diastolic Combined systolic/diastolic Systolic Other (please specify) None of the above / Not applicable Thank you for your consideration. MARGI Clarke RN Clinical Home Aid Physician Advisor [email or web address]
[2020-05-16] MEDS: LISINOPRIL 5 MG TABLET PO SCH (09:47)
[2020-05-16] MEDS: FAMOTIDINE 20 MG TABLET PO SCH (09:47)
[2020-05-16] MEDS: APIXABAN 5 MG TABLET PO SCH ×2 (09:47→17:38)
[2020-05-16] MEDS: CELECOXIB 100 MG CAPSULE PO SCH (09:48)
[2020-05-16] MEDS: ASPIRIN 81 MG TABLET, ENT COATED PO SCH (09:48)
[2020-05-16] MEDS ORDERED: METOPROLOL TARTRATE PF/INJ 5 MG/5 ML SDV IV PRN (11:19)
--- NOTE | 2020-05-16 12:37 | PDOC PROGRESS REPORT ---
Subjective Date:: 05/16/20 Subjective:: Patient was followed by Dr. Henry. Please see his note for clinical course up at this point. She has presented with atrial flutter with rapid ventricular response which was successfully controlled with intravenous AV caren blockade with diltiazem infusion. Subsequently she was placed on oral metoprolol which seemed to address the issue. Her ejection fraction is preserved on echocardiogram done on May 12, 2020. Presently she is in atrial flutter with mildly increased ventricular rate. She does not endorse significant symptoms. Reason For Visit: DEHYDRATION Physical Exam Vital Signs: Temp Pulse Resp BP Pulse Ox 97.2 F 86 19 113/67 99 05/16/20 08:20 05/16/20 07:52 05/16/20 07:52 05/16/20 07:52 05/16/20 07:52 Intake & Output 05/15/20 05/16/20 05/17/20 06:59 06:59 06:59 Intake Total 1650 380 50 Output Total 1800 25 Balance -150 355 50 Weight 87.6 kg 87.6 kg General appearance: PRESENT: no acute distress, cooperative, obese, well- developed, well-nourished Head exam: PRESENT: atraumatic, normocephalic Eye exam: PRESENT: conjunctiva pink, EOMI Mouth exam: PRESENT: moist Cardiovascular exam: PRESENT: irregular rhythm, +S1, +S2 Pulses: PRESENT: normal carotid pulses, normal radial pulses GI/Abdominal exam: PRESENT: soft Rectal exam: PRESENT: deferred Neurological exam: PRESENT: alert, awake, oriented to person, oriented to place Psychiatric exam: PRESENT: appropriate affect Skin exam: PRESENT: dry, intact Results Laboratory Results: 05/16/20 05:42 05/16/20 05:42 05/16/20 05/16/20 05:42 05:42 WBC 7.6 RBC 3.92 Hgb 12.0 Hct 36.7 MCV 94 MCH 30.7 MCHC 32.8 RDW 15.2 H Plt Count 138 L Seg Neutrophils % 67.6 Sodium 139.7 Potassium 4.2 Chloride 99 Carbon Dioxide 37 H Anion Gap 4 L BUN 27 H Creatinine 1.19 Est GFR ( Amer) 52 L Glucose 109 Calcium 8.6 Total Bilirubin 0.5 AST 30 Alkaline Phosphatase 68 Total Protein 6.1 L Albumin 3.4 L 05/12/20 05/12/20 05/12/20 13:00 13:00 13:00 Creatine Kinase 45 CK-MB (CK-2) 1.90 Troponin I 0.024 Cancelled NT-Pro-B Natriuret Pep 2990 H 05/13/20 05/15/20 06:01 05:47 Creatine Kinase CK-MB (CK-2) Troponin I NT-Pro-B Natriuret Pep 2310 H 3700 H EKG Comments: Transthoracic echocardiogram 05/12/2020. Left ventricle ejection fraction estimated at 60 to 65% Moderate pulmonary hypertension Mild to moderate mitral regurgitation mild to moderate tricuspid regurgitation m ild biatrial enlargement. There is no pericardial effusion Twelve-lead EKG 05/12/2020. 1206. Atrial flutter with 2 1 conduction. Ventricular rate 159 bpm. Right bundle branch block Twelve-lead EKG 05/12/2020. 1608. Atrial flutter rapid ventricular response 145 bpm Current telemetry shows atrial flutter with ventricular rate of 110 bpm Cardiac troponin 0 0.024 Impressions: Chest X-Ray 05/15/20 00:00 IMPRESSION: Stable pulmonary examination demonstrating low lung volumes with bibasilar atelectasis versus consolidation. Assessment & Plan - Diagnosis (1) Atrial flutter by electrocardiogram Is this a current diagnosis for this admission?: Yes Plan: Rate control measures Continue metoprolol 50 mg twice daily May require additional IV pushes of metoprolol 2.5 to 5 mg every 4 hours which data can be used to uptitrate the dose of metoprolol For additional AV caren blockade can consider digoxin 125 mcg once daily. Continue systemic anticoagulation with apixaban 5 mg twice daily. (2) Acute diarrhea Is this a current diagnosis for this admission?: Yes Plan: New finding. Patient reports profound diarrhea this morning. This is being investigated. (3) Heart failure with preserved ejection fraction Qualifiers: Heart failure chronicity: acute Qualified Code(s): I50.31 - Acute diastolic (congestive) heart failure Is this a current diagnosis for this admission?: Yes Plan: Echocardiogram showed preserved ejection fraction Likely acute decompensated heart failure probably due to rapid ventricular rate and tachycardia We will admit better rate control Continue volume optimization with intravenous diuretic if needed. Now with ongoing diarrhea this may not be suitable and we will have to watch her fluid status closely. She might become volume depleted quickly given her description of diarrhea.
--- NOTE | 2020-05-16 20:13 | PDOC PROGRESS REPORT ---
Subjective Date:: 05/16/20 Subjective:: The patient is an 89 year old female with a past medical history significant for HTN, HLD, hypothyroidism, arthritis, and obesity who was admitted 05/12/20 with Acute CHF, a. flutter, and diarrhea. Patient was seen on morni rounds. She was found sitting up to the recliner, comfortably, on suppelmental oxygen via NC. She is not on home O2. Patient is somewhat forgetful/repetative during out conversation. She reports continued diarrhea, though is unable to tell me the frequency or describe her stools. She denies abdominal discomfort and is noted to be eating fruit and cottage cheese during my assessment. Otherwise, she denies all complaints. No fever,chills, chest pain, palpitations, dyspnea, orthopnea, cough, abd pain, n/v. She has no other questions or concerns. Discussed plan of care w/ nursing. Reason For Visit: DEHYDRATION Physical Exam Vital Signs: Temp Pulse Resp BP Pulse Ox 97.2 F 136 H 20 124/53 L 96 05/16/20 15:19 05/16/20 15:19 05/16/20 15:19 05/16/20 15:19 05/16/20 15:19 Intake & Output 05/15/20 05/16/20 05/17/20 06:59 06:59 06:59 Intake Total 1650 380 350 Output Total 1800 25 Balance -150 355 350 Weight 87.6 kg 87.6 kg General appearance: PRESENT: no acute distress, cooperative, obese, well- developed, well-nourished Head exam: PRESENT: atraumatic, normocephalic Eye exam: PRESENT: conjunctiva pink, EOMI, PERRLA. ABSENT: scleral icterus Mouth exam: PRESENT: moist, tongue midline Respiratory exam: PRESENT: clear to auscultation timothy, symmetrical, unlabored, other - Supplemental oxygen by nasal cannula. ABSENT: rales, rhonchi, wheezes Cardiovascular exam: PRESENT: irregular rhythm, +S1, +S2. ABSENT: diastolic murmur, rubs, systolic murmur Pulses: PRESENT: normal dorsalis pedis pul Vascular exam: PRESENT: normal capillary refill GI/Abdominal exam: PRESENT: normal bowel sounds, soft. ABSENT: distended, guarding, mass, organolmegaly, rebound, tenderness Extremities exam: PRESENT: full ROM. ABSENT: calf tenderness, clubbing, pedal edema Musculoskeletal exam: PRESENT: ambulatory Neurological exam: PRESENT: alert, awake, oriented to person, oriented to place, oriented to time, oriented to situation, CN II-XII grossly intact, other - Pleasant; slight forgetfulness/repetitiveness. ABSENT: motor sensory deficit Psychiatric exam: PRESENT: appropriate affect, normal mood. ABSENT: homicidal ideation, suicidal ideation Skin exam: PRESENT: dry, intact, warm. ABSENT: cyanosis, rash Results Laboratory Results: 05/16/20 05:42 05/16/20 05:42 05/16/20 05/16/20 05:42 05:42 WBC 7.6 RBC 3.92 Hgb 12.0 Hct 36.7 MCV 94 MCH 30.7 MCHC 32.8 RDW 15.2 H Plt Count 138 L Seg Neutrophils % 67.6 Sodium 139.7 Potassium 4.2 Chloride 99 Carbon Dioxide 37 H Anion Gap 4 L BUN 27 H Creatinine 1.19 Est GFR ( Amer) 52 L Glucose 109 Calcium 8.6 Total Bilirubin 0.5 AST 30 Alkaline Phosphatase 68 Total Protein 6.1 L Albumin 3.4 L 05/12/20 05/12/20 05/12/20 13:00 13:00 13:00 Creatine Kinase 45 CK-MB (CK-2) 1.90 Troponin I 0.024 Cancelled NT-Pro-B Natriuret Pep 2990 H 05/13/20 05/15/20 06:01 05:47 Creatine Kinase CK-MB (CK-2) Troponin I NT-Pro-B Natriuret Pep 2310 H 3700 H Impressions: Chest X-Ray 05/15/20 00:00 IMPRESSION: Stable pulmonary examination demonstrating low lung volumes with bibasilar atelectasis versus consolidation. Assessment and Plan - Diagnosis (1) Atrial flutter with rapid ventricular response Is this a current diagnosis for this admission?: Yes Plan: Patient has been weaned off of diltiazem drip. Continues to have irregular rhythm, underlying atrial flutter, and frequent/brief episodes of tachycardia with a heart rate into the 140s. This occurs both at rest and with minimal activity. Monitor on telemetry. Cardiology has been consulted. Continue Metoprolol 50 mg twice daily. Discussed with Dr. Goldstein today; will try Lopressor 2.5 mg IV as needed heart rate control to assess response prior to making further oral adjustments. Continue Eliquis twice daily. (2) Acute CHF (congestive heart failure) Qualifiers: Heart failure type: diastolic Qualified Code(s): I50.31 - Acute diastolic (congestive) heart failure Is this a current diagnosis for this admission?: Yes Plan: Echocardiogram shows preserved ejection fraction. Acute CHF exacerbation likely secondary to atrial fibrillation with RVR. Cardiology consulted. Gentle diuresis with IV furosemide. Continue metoprolol, lisinopril, aspirin, atorvastatin, and Eliquis therapy. Daily weights, strict I&O's. (3) Acute diarrhea Is this a current diagnosis for this admission?: Yes Plan: Patient reports continued episodes of diarrhea, however, is unable to describe frequency or consistency of her stools. She denies associated abdominal discomfort, nausea and vomiting. Per nursing scant stool output today. Have asked them to clearly/accurately document stool output. C. difficile (ordered at time of admission) remains pending. Stool WBCs and culture pending. It is possible that the patient is hyper focused on her bowel movements and is actually having little to no diarrhea as stools have not been directly visualized. It is also possible that the patient is actually constipated with overflow stool incontinence. Will obtain KUB in the morning. (4) Aspiration pneumonia due to food (regurgitated) Is this a current diagnosis for this admission?: Yes Plan: Continue p.o. Augmentin. Speech therapy has been consulted. Plan for modified barium swallow study in the morning. Aspiration precautions. (5) Dehydration Is this a current diagnosis for this admission?: Yes Plan: Resolved; now with mild fluid volume overload. Cautiously diurese with IV furosemide. - Time Time Spent with patient: 25-34 minutes Medications reviewed and adjusted accordingly: Yes Anticipated Discharge Disposition: Home with Home Health Anticipated Discharge Timeframe: within 72 hours
[2020-05-17] MEDS: LEVOTHYROXINE SODIUM 0.05 MG TABLET PO SCH (05:37)
[2020-05-17 06:49] LABS: HEMATOCRIT 38.8 % (36.0-47.0); HEMOGLOBIN 12.6 g/dL (12.0-15.5); MEAN CORPUSCULAR HEMOGLOBIN 30.5 pg (27.0-33.4); MEAN CORPUSCULAR HGB CONC 32.5 g/dL (32.0-36.0); MEAN CORPUSCULAR VOLUME 94 fl (80-97); PLATELET COUNT 129 10^3/uL (150-450); RED BLOOD COUNT 4.12 10^6/uL (3.72-5.28); WHITE BLOOD COUNT 6.3 10^3/uL (4.0-10.5)
[2020-05-17 07:14] LABS: ANION GAP 7 (5-19); BLOOD UREA NITROGEN 26 mg/dL (7-20); CALCIUM 8.6 mg/dL (8.4-10.2); CARBON DIOXIDE 35 mmol/L (22-30); CHLORIDE 96 mmol/L (98-107); GLUCOSE 110 mg/dL (75-110); POTASSIUM 4.2 mmol/L (3.6-5.0)
[2020-05-17] MEDS: METOPROLOL TARTRATE PF/INJ 5 MG/5 ML SDV IV PRN (08:15)
[2020-05-17] MEDS ORDERED: DEXTROSE 40% GEL 15 GM TUBE PO PRN ×2 (09:20)
[2020-05-17] MEDS ORDERED: GLUCAGON,HUMAN RECOMB 1 MG INJ SUBCUT PRN (09:20)
[2020-05-17] MEDS ORDERED: DEXTROSE 50%-WATER 25 GM/50 ML DISP.SYRIN IV PRN ×2 (09:20)
[2020-05-17] MEDS: METOPROLOL TARTRATE 50 MG TABLET PO SCH ×2 (09:21→21:12)
[2020-05-17] MEDS: ASPIRIN 81 MG TABLET, ENT COATED PO SCH (09:22)
[2020-05-17] MEDS: FAMOTIDINE 20 MG TABLET PO SCH (09:22)
[2020-05-17] MEDS: APIXABAN 5 MG TABLET PO SCH ×2 (09:22→17:48)
[2020-05-17] MEDS: AMOXICILLIN TR/POT CLAVULANATE 875-125 MG TAB PO SCH ×2 (09:22→21:12)
[2020-05-17] MEDS: LISINOPRIL 5 MG TABLET PO SCH (09:22)
[2020-05-17] MEDS: CELECOXIB 100 MG CAPSULE PO SCH (09:22)
[2020-05-17] MEDS: FUROSEMIDE INJ/PF 20 MG/2 ML SDV IV SCH ×2 (09:23→21:12)
--- NOTE | 2020-05-17 13:17 | PDOC PROGRESS REPORT ---
Subjective Date:: 05/17/20 Subjective:: Patient was seen and examined. She is resting comfortably. She required intrav enous metoprolol this morning as her ventricular rate has picked up. At the time of my evaluation the ventricular rate had slowed back down to about 100 bpm. She is comfortable however. Because of GI symptoms swallow eval and KUB has been ordered. Reason For Visit: DEHYDRATION Physical Exam Vital Signs: Temp Pulse Resp BP Pulse Ox 97.7 F 65 20 97/74 L 95 05/17/20 08:48 05/17/20 08:00 05/17/20 08:00 05/17/20 08:00 05/17/20 08:00 Intake & Output 05/16/20 05/17/20 05/18/20 06:59 06:59 06:59 Intake Total 380 490 Output Total 25 300 Balance 355 190 Weight 87.6 kg 87.4 kg General appearance: PRESENT: no acute distress, cooperative, obese, well- developed, well-nourished Head exam: PRESENT: atraumatic, normocephalic Eye exam: PRESENT: EOMI Mouth exam: PRESENT: moist Cardiovascular exam: PRESENT: irregular rhythm, +S1, +S2 Rectal exam: PRESENT: deferred Skin exam: PRESENT: dry, intact, normal color Results Laboratory Results: 05/17/20 05:52 05/17/20 05:52 05/17/20 05/17/20 05:52 05:52 WBC 6.3 RBC 4.12 Hgb 12.6 Hct 38.8 MCV 94 MCH 30.5 MCHC 32.5 RDW 15.0 H Plt Count 129 L Sodium 138.2 Potassium 4.2 Chloride 96 L Carbon Dioxide 35 H Anion Gap 7 BUN 26 H Creatinine 1.09 Est GFR ( Amer) 57 L Glucose 110 Calcium 8.6 Magnesium 1.7 05/12/20 05/12/20 05/12/20 13:00 13:00 13:00 Creatine Kinase 45 CK-MB (CK-2) 1.90 Troponin I 0.024 Cancelled NT-Pro-B Natriuret Pep 2990 H 05/13/20 05/15/20 05/17/20 06:01 05:47 05:52 Creatine Kinase CK-MB (CK-2) Troponin I NT-Pro-B Natriuret Pep 2310 H 3700 H 5670 H EKG Comments: Telemetry review shows atrial flutter with ventricular rate approximately 100 bpm. Impressions: Chest X-Ray 05/15/20 00:00 IMPRESSION: Stable pulmonary examination demonstrating low lung volumes with bibasilar atelectasis versus consolidation. Assessment & Plan - Diagnosis (1) Atrial flutter by electrocardiogram Is this a current diagnosis for this admission?: Yes Plan: Rate control measures May have to increase dose of metoprolol to 75 mg twice daily Based on clinical course and the GI work-up is conducive to further cardiac plans we can consider KAYLA guided cardioversion Continue systemic anticoagulation with apixaban 5 mg twice daily. (2) Acute diarrhea Is this a current diagnosis for this admission?: Yes Plan: Nurse does not report any diarrhea. KUB and swallow eval have been performed. (3) Heart failure with preserved ejection fraction Qualifiers: Heart failure chronicity: acute Qualified Code(s): I50.31 - Acute diastolic (congestive) heart failure Is this a current diagnosis for this admission?: Yes Plan: Echocardiogram showed preserved ejection fraction Likely acute decompensated heart failure probably due to rapid ventricular rate and tachycardia Continue to watch volume status Rate control measures at the moment KAYLA guided cardioversion can be pursued based on clinical course.
--- NOTE | 2020-05-17 14:04 | RADIOLOGY REPORT (SQ) ---
EXAM DESCRIPTION: COOKIE SWALLOW IMAGES COMPLETED DATE/TIME: 05/17/2020 1:26 pm REASON FOR STUDY: diagnosed with aspiration pneumonia COMPARISON: None. TECHNIQUE: Videofluoroscopic swallowing examination was performed in conjunction with speech patholo gy. Videofluoroscopic imaging was obtained and reviewed and these are the findings: RADIATION DOSE: Fluoro time 50 seconds 1 images saved to PACS. LIMITATIONS: None FINDINGS: The patient was brought into the fluoro room and placed upright on a modified barium swall ow chair. The patient was then given multiple consistencies mixed with barium to swallow under live fluoroscopic video guidance. According to the Speech Pathologist there was no penetration or aspirat ion. Please refer to the speech pathology report for further details. IMPRESSION: NO EVIDENCE OF PENETRATION OR ASPIRATION. PLEASE SEE SPEECH PATHOLOGIST REPORT FOR OTHER FINDINGS AND RECOMMENDATIONS. COMMENT: None Quality ID [id number]: Final reports for procedures using fluoroscopy that document radiation exposure elli allen, or exposure time and number of fluorographic images (if radiation exposure indices are not avail able) TECHNICAL DOCUMENTATION: JOB ID: [id number] 2010 [employer]- All Rights Reserved Reading location - IP/workstation name: [email or web address]
--- NOTE | 2020-05-17 14:43 | RADIOLOGY REPORT (SQ) ---
EXAM DESCRIPTION: KUB/ABDOMEN (SINGLE VIEW) IMAGES COMPLETED DATE/TIME: 05/17/2020 1:03 pm REASON FOR STUDY: diarrhea COMPARISON: None. NUMBER OF VIEWS: One view. TECHNIQUE: Supine radiographic image of the abdomen acquired. LIMITATIONS: None. FINDINGS: BOWEL GAS PATTERN: Normal bowel gas pattern. No dilated loops. CALCIFICATIONS: No suspicious calcifications. SOFT TISSUES: No gross mass or suggestion of organomegaly. HARDWARE: None in the abdomen. BONES: No acute fracture. No worrisome bone lesions. OTHER: No other significant finding. IMPRESSION: NO RADIOGRAPHIC EVIDENCE FOR ACUTE ABDOMINAL DISEASE. TECHNICAL DOCUMENTATION: JOB ID: [id number] 2010 [employer]- All Rights Reserved Reading location - IP/workstation name: [email or web address]
--- NOTE | 2020-05-17 16:08 | ST Inp Modified Barium Swallow ---
Medical Diagnosis - ICD-10 Tx Diagnosis Coding (1) Acute CHF (congestive heart failure) ICD-10 Code(s): I50.9 - HEART FAILURE, UNSPECIFIED (2) Aspiration pneumonia due to food (regurgitated) ICD-10 Code(s): J69.0 - PNEUMONITIS DUE TO INHALATION OF FOOD AND VOMIT (3) Atrial flutter with rapid ventricular response ICD-10 Code(s): I48.92 - UNSPECIFIED ATRIAL FLUTTER Inpatient [facility] – [place], [place] - General Date: 05/17/20 Date of Onset: 05/12/20 - History History Obtained From: Other - EMR Medical History: Admitted 05/12/2020 with acute chronic heart failure, atrial flutter, acute diarrhea, & dehydration. Aspiration pneumonia diagnosed 05/15/2020. Chest x-ray showed atelectasis versus focal pneumonia in right lower lobe & "cannot exclude left lower lobe pneumonia". PMHx includes hypertension and osteoarthritis. Patient awake, alert, & able to answer questions. She indicated no coughing or choking with eating or drinking until last week. She reported has been on thickened liquids but that in the last two days she was given large straw cup of water that she has been drinking. Medications: Medications Reviewed Allergies: No known allergies - Subjective Current Nutritional Means: PO Current PO Diet: Mechanical - cut, Thickened liquids Current Symptoms: Coughing, Pneumonia Pain: Patient reports, 0/5, denies pain - Objective Assessment: Upright, Left Lateral - Food Trials Food Trials Used: Thin liquids, Pureed, Regular The Patient: Was Able to Self Feed - Assessment Labial Function: Within Functional Limits Lingual Function: Within Functional Limits Mandibular Function: Within Functional Limits - Pharyngeal Stage Initiation of Pharyngeal Stage: Normal Decreased Laryngeal Elevation: No Reduced Pressure Generation: No Reduced Tongue Base Retraction: No Pre-Swallowing Pooling in Valleculae: None Pre-Swallowing Pooling in Pyriforms: None Reduced Thyro-Hyiod Approximation: No Reduced Epiglottic Excursion: No Reduced Pharyngeal Peristalsis: No Post Swallow Residuals in Valleculae: Mild Post Swallow Residuals in Pyriforms: None Pahryngeal Stage Comments: WNL. - Impression/Summary Laryngeal Penetration: No Tracheal Aspiration: no Patient Presents With: Normal swallow at eval - Recommendations Solid Diet Recommendations: Mechanical Soft, Regular Liquid Diet Recommendations: Thin Dysphagia Therapy with PANEL LAMINATOR: No Other Recommendations: Patient presents with swallow within normal limits. No aspiration or penetration. Suspect may have aspirated due to respiratory status and has now returned to baseline. Patient educated on results & verbalized understanding. ST communicated results to both BOX FEEDER Renee Thompson and RN Jaja. - Time Total Time: 10 Total Timed Minutes: 0
--- NOTE | 2020-05-17 19:24 | PDOC PROGRESS REPORT ---
Subjective Date:: 05/17/20 Subjective:: The patient is an 89 year old female with a past medical history significant for HTN, HLD, hypothyroidism, arthritis, and obesity who was admitted 05/12/20 with Acute CHF, a. flutter, and diarrhea. Patient was seen on morning rounds with her sister present. She was found sitting up to the recliner, comfortably, on supplemental oxygen via NC. She is not on home O2. She reports she is feeling well today; looking forward to MBSS and hopeful to be cleared for normal consistency foods. No further episodes of loose stools. She denies fever,chills, chest pain, palpitations, dyspnea, orthopnea, cough, abd pain, n/v. She has no other questions or concerns. Patient's sister asks that we set up home health services as patient lives alone. No concerns per nursing. Reason For Visit: DEHYDRATION Physical Exam Vital Signs: Temp Pulse Resp BP Pulse Ox 97.8 F 102 H 18 110/51 L 97 05/17/20 12:04 05/17/20 12:04 05/17/20 12:04 05/17/20 12:04 05/17/20 12:04 Intake & Output 05/16/20 05/17/20 05/18/20 06:59 06:59 06:59 Intake Total 380 490 440 Output Total 25 300 Balance 355 190 440 Weight 87.6 kg 87.4 kg General appearance: PRESENT: no acute distress, cooperative, obese, well- developed, well-nourished Head exam: PRESENT: atraumatic, normocephalic Eye exam: PRESENT: conjunctiva pink, EOMI, PERRLA. ABSENT: scleral icterus Mouth exam: PRESENT: moist, tongue midline Respiratory exam: PRESENT: clear to auscultation timothy, symmetrical, unlabored, other - supplemental oxygen via NC. ABSENT: rales, rhonchi, wheezes Cardiovascular exam: PRESENT: irregular rhythm, +S1, +S2, tachycardia - inter mittent. ABSENT: diastolic murmur, rubs, systolic murmur Pulses: PRESENT: normal dorsalis pedis pul Vascular exam: PRESENT: normal capillary refill GI/Abdominal exam: PRESENT: normal bowel sounds, soft. ABSENT: distended, g uarding, mass, organolmegaly, rebound, tenderness Rectal exam: PRESENT: deferred Extremities exam: PRESENT: full ROM. ABSENT: calf tenderness, clubbing, pedal edema, +1 edema Musculoskeletal exam: PRESENT: ambulatory Neurological exam: PRESENT: alert, awake, oriented to person, oriented to place, oriented to time, oriented to situation, CN II-XII grossly intact. ABSENT: motor sensory deficit Psychiatric exam: PRESENT: appropriate affect, normal mood. ABSENT: homicidal ideation, suicidal ideation Skin exam: PRESENT: dry, intact, warm. ABSENT: cyanosis, rash Results Laboratory Results: 05/17/20 05:52 05/17/20 05:52 05/17/20 05/17/20 05:52 05:52 WBC 6.3 RBC 4.12 Hgb 12.6 Hct 38.8 MCV 94 MCH 30.5 MCHC 32.5 RDW 15.0 H Plt Count 129 L Sodium 138.2 Potassium 4.2 Chloride 96 L Carbon Dioxide 35 H Anion Gap 7 BUN 26 H Creatinine 1.09 Est GFR ( Amer) 57 L Glucose 110 Calcium 8.6 Magnesium 1.7 05/12/20 05/12/20 05/12/20 13:00 13:00 13:00 Creatine Kinase 45 CK-MB (CK-2) 1.90 Troponin I 0.024 Cancelled NT-Pro-B Natriuret Pep 2990 H 05/13/20 05/15/20 05/17/20 06:01 05:47 05:52 Creatine Kinase CK-MB (CK-2) Troponin I NT-Pro-B Natriuret Pep 2310 H 3700 H 5670 H Impressions: Chest X-Ray 05/15/20 00:00 IMPRESSION: Stable pulmonary examination demonstrating low lung volumes with bibasilar atelectasis versus consolidation. Modified Barium Swallow 05/17/20 00:00 IMPRESSION: NO EVIDENCE OF PENETRATION OR ASPIRATION. PLEASE SEE SPEECH PATHOLOGIST REPORT FOR OTHER FINDINGS AND RECOMMENDATIONS. KUB X-Ray 05/17/20 07:00 IMPRESSION: NO RADIOGRAPHIC EVIDENCE FOR ACUTE ABDOMINAL DISEASE. Assessment and Plan - Diagnosis (1) Atrial flutter with rapid ventricular response Is this a current diagnosis for this admission?: Yes Plan: Patient has been weaned off of diltiazem drip. Continues to have irregular rhythm, underlying atrial flutter, and frequent/brief episodes of tachycardia with a heart rate into the 140s. This occurs both at rest and with minimal activity. Monitor on telemetry. Cardiology has been consulted. Continue Metoprolol 50 mg twice daily. Continue Eliquis twice daily. Discussed w/ Dr. Goldstein. Plans for KAYLA and possible cardioversion tomorrow. NPO after midnight. (2) Acute CHF (congestive heart failure) Qualifiers: Heart failure type: diastolic Qualified Code(s): I50.31 - Acute diastolic (congestive) heart failure Is this a current diagnosis for this admission?: Yes Plan: Echocardiogram shows preserved ejection fraction. Acute CHF exacerbation likely secondary to atrial fibrillation with RVR. proBNP 2990-> 5670 Cardiology consulted. Gentle diuresis with IV furosemide. Continue metoprolol, lisinopril, aspirin, atorvastatin, and Eliquis therapy. Daily weights, strict I&O's. (3) Acute diarrhea Is this a current diagnosis for this admission?: Yes Plan: No further episodes. Have asked them to clearly/accurately document stool output. KUB negative for acute findings. C. difficile (ordered at time of admission) remains pending. Stool WBCs and culture pending. (4) Aspiration pneumonia due to food (regurgitated) Is this a current diagnosis for this admission?: Yes Plan: Continue p.o. Augmentin. MBSS is nml. Speech therapy has been consulted. May advance to regular diet tomorrow; currently NPO after midnight for KAYLA/ca rdioversion. (5) Dehydration Is this a current diagnosis for this admission?: Yes Plan: Resolved; now with mild fluid volume overload. Cautiously diurese with IV furosemide. - Time Time Spent with patient: 35 or more minutes Medications reviewed and adjusted accordingly: Yes Anticipated Discharge Disposition: Home with Home Health Anticipated Discharge Timeframe: within 48 hours
[2020-05-17] MEDS: ATORVASTATIN CALCIUM 20 MG TABLET PO SCH (21:12)
--- NOTE | 2020-05-17 23:13 | RADIOLOGY REPORT (SQ) ---
CT head without contrast on 05/17/2020 at 10:17 PM CLINICAL INDICATION: Fall, per protocol for mechanism of injury TECHNIQUE: Multiple axial images are obtained throughout the head without the administration of contrast. This exam was performed according to our departmental dose-optimization program, which includes automated exposure control, adjustment of the mA and/or kV according to patient size and/or use of iterative reconstruction technique. Total DLP is 1043.77 mGy*cm. COMPARISON: None FINDINGS: There is mild generalized cerebral atrophy. There is low density in the periventricular white matter consistent with chronic small vessel ischemic changes. There is no hydrocephalus. There is no hemorrhage. There are no abnormal extra-axial fluid collections. There is no mass, mass effect or midline shift. There is no CT evidence of acute infarct. No bony abnormality is noted. IMPRESSION: Atrophy and chronic small vessel ischemic changes with no acute intracranial abnormality.
[2020-05-18] MEDS: METOPROLOL TARTRATE PF/INJ 5 MG/5 ML SDV IV PRN (02:06)
[2020-05-18] MEDS: LEVOTHYROXINE SODIUM 0.05 MG TABLET PO SCH (05:05)
[2020-05-18 07:55] LABS: BLOOD UREA NITROGEN 22 mg/dL (7-20); CALCIUM 8.8 mg/dL (8.4-10.2); GLUCOSE 113 mg/dL (75-110); POTASSIUM 4.2 mmol/L (3.6-5.0)
[2020-05-18 08:00] LABS: ANION GAP 5 (5-19); CARBON DIOXIDE 39 mmol/L (22-30); CHLORIDE 95 mmol/L (98-107)
[2020-05-18] MEDS ORDERED: EPHEDRINE SULFATE INJ 50 MG/1 ML AMPULE ONE (08:52)
[2020-05-18] MEDS ORDERED: PROPOFOL INJ 200 MG/20 ML VIAL IV ONE (08:52)
--- NOTE | 2020-05-18 09:56 | Progress Note ---
Provider Note Provider Note: DIRECT CURRENT CARDIOVERSION Date : May 18, 2020 Procedure: Direct current cardioversion Anesthesia: General anesthesia Indication: Atrial flutter with rapid ventricular response Clinical history: 89-year-old lady with atrial flutter with rapid ventricular response. She developed mild heart failure symptoms on account probably of tachycardia. Transthoracic echocardiogram showed no significant valve lesion and preserved left ventricular ejection fraction. Transesophageal echocar diogram was performed prior to the cardioversion to ensure that there was no left atrial appendage thrombus. A KAYLA was performed and left atrial appendage was carefully imaged to make sure that there was no left atrial appendage thrombus. Thus we decided to proceed with direct-current cardioversion. PROCEDURE The patient was brought to the holding area fasting and nonsedated state. Informed consent was obtained prior to the procedure. General anesthesia was administered. Please see anesthesia notes for medication details. Transesophageal echocardiogram was performed which showed that there was no left atrial appendage thrombus. Patient's presenting rhythm was atrial fibrillation with rapid ventricular response. The patient's EKG and vital signs were monitored throughout. Once the patient was comfortably sedated a single direct current biphasic 200 J shock was administered across defibrillator patches applied in anteroposterior fashion across the chest. This resulted in prompt methodist of sinus rhythm with frequent premature atrial complexes. The patient tolerated the procedure well. Conclusion Successful conversion of atrial flutter to sinus rhythm Plan Continue systemic anticoagulation-apixaban 5 mg twice daily without interruption Continue metoprolol 50 mg twice daily Outpatient follow-up will be arranged
--- NOTE | 2020-05-18 09:59 | PDOC PROGRESS REPORT ---
Subjective Date:: 05/18/20 Subjective:: She was seen and examined in the OR holding area room 4. She was brought down t o this area in anticipation for transesophageal echocardiogram and direct current cardioversion. GI evaluation performed yesterday was inconclusive. Reason For Visit: DEHYDRATION Physical Exam Vital Signs: Temp Pulse Resp BP Pulse Ox 97.8 F 106 H 15 135/110 H 100 05/18/20 08:21 05/18/20 07:00 05/18/20 04:55 05/18/20 04:55 05/18/20 04:55 Intake & Output 05/17/20 05/18/20 05/19/20 06:59 06:59 06:59 Intake Total 490 1020 Output Total 300 300 Balance 190 720 Weight 87.4 kg 87.2 kg General appearance: PRESENT: no acute distress, cooperative, obese, well- developed, well-nourished Head exam: PRESENT: atraumatic, normocephalic Eye exam: PRESENT: conjunctiva pink, EOMI Mouth exam: PRESENT: moist Respiratory exam: PRESENT: unlabored Cardiovascular exam: PRESENT: irregular rhythm, +S1, +S2 GI/Abdominal exam: PRESENT: soft Rectal exam: PRESENT: deferred Neurological exam: PRESENT: alert, awake, oriented to person, oriented to place, oriented to time, oriented to situation Skin exam: PRESENT: dry, intact, normal color Results Laboratory Results: 05/17/20 05:52 05/18/20 06:04 05/18/20 06:04 Sodium 138.5 Potassium 4.2 Chloride 95 L Carbon Dioxide 39 H Anion Gap 5 BUN 22 H Creatinine 0.98 Est GFR ( Amer) > 60 Glucose 113 H Calcium 8.8 05/12/20 05/12/20 05/12/20 13:00 13:00 13:00 Creatine Kinase 45 CK-MB (CK-2) 1.90 Troponin I 0.024 Cancelled NT-Pro-B Natriuret Pep 2990 H 05/13/20 05/15/20 05/17/20 06:01 05:47 05:52 Creatine Kinase CK-MB (CK-2) Troponin I NT-Pro-B Natriuret Pep 2310 H 3700 H 5670 H Impressions: Chest X-Ray 05/15/20 00:00 IMPRESSION: Stable pulmonary examination demonstrating low lung volumes with bibasilar atelectasis versus consolidation. Head CT 05/17/20 00:00 IMPRESSION: Atrophy and chronic small vessel ischemic changes with no acute intracranial abnormality. Modified Barium Swallow 05/17/20 00:00 IMPRESSION: NO EVIDENCE OF PENETRATION OR ASPIRATION. PLEASE SEE SPEECH PATHOLOGIST REPORT FOR OTHER FINDINGS AND RECOMMENDATIONS. KUB X-Ray 05/17/20 07:00 IMPRESSION: NO RADIOGRAPHIC EVIDENCE FOR ACUTE ABDOMINAL DISEASE. Assessment & Plan - Diagnosis (1) Atrial flutter by electrocardiogram Is this a current diagnosis for this admission?: Yes Plan: Direct-current cardioversion was performed which resulted in mu-ism of sinus rhythm with frequent PACs. She currently systemic anticoagulation with apixaban 5 mg twice daily for at least 6 weeks Continue metoprolol 50 mg twice daily for blood pressure management as well as to suppress PACs and other triggers for atrial arrhythmias. I met with the son and spoke about the procedure and continued plans I will see her in the office for continued follow-up. (2) Acute diarrhea Is this a current diagnosis for this admission?: Yes Plan: This has resolved. (3) Heart failure with preserved ejection fraction Qualifiers: Heart failure chronicity: acute Qualified Code(s): I50.31 - Acute diastolic (congestive) heart failure Is this a current diagnosis for this admission?: Yes Plan: Echocardiogram showed preserved ejection fraction Patient may have developed mild heart failure symptoms on account of tachycardia from atrial flutter. Today patient appears fairly euvolemic. With mu-ism of sinus rhythm she ought to do well. May require small dose maintenance diuretic as she may have a component of diastolic dysfunction and diastolic heart failure as well.
[2020-05-18] MEDS: METOPROLOL TARTRATE 50 MG TABLET PO SCH ×2 (11:32→21:24)
[2020-05-18] MEDS: APIXABAN 5 MG TABLET PO SCH ×2 (11:32→17:07)
[2020-05-18] MEDS: ASPIRIN 81 MG TABLET, ENT COATED PO SCH (11:32)
[2020-05-18] MEDS: FAMOTIDINE 20 MG TABLET PO SCH (11:32)
[2020-05-18] MEDS: CELECOXIB 100 MG CAPSULE PO SCH (11:32)
[2020-05-18] MEDS: FUROSEMIDE INJ/PF 20 MG/2 ML SDV IV SCH ×2 (11:32→21:24)
[2020-05-18] MEDS: AMOXICILLIN TR/POT CLAVULANATE 875-125 MG TAB PO SCH ×2 (11:32→21:24)
[2020-05-18] MEDS: LISINOPRIL 5 MG TABLET PO SCH (11:42)
--- NOTE | 2020-05-18 18:07 | XCELERA REPORT ---
Study ID: [id number] [address] [address] Transesophageal Echocardiogram Report Name: SANTIAGO LOVE Age: 89 yrs Gender: Female : 1930 Patient Status: Inpatient Patient Location: [address] [place], [place] [address] Study Date: 05/18/2020 08:59 AM History: Atrial flutter CHF Height: 60 in Weight: 192 lb BSA: 1.8 m2 Reason For Study: afib Ordering Physician: BRENT BLACK Performed By: Mona Tuttle Interpretation Summary Study was abbreviated after imagining the LA as patient oxygen saturations decreased. The left atrium is mildly dilated. No left atrial mass or thrombus visualized. Study was abbreviated after imagining the LA as patient oxygen saturations decreased. Procedure A complete two-dimensional transesophageal echocardiogram was performed (2D, spectral and color flow Doppler). Informed consent for Transesophageal Echocardiogram, and use of a contrast agent as needed, was obtained prior to the procedure. The patient was brought to the OR Holding in a fasting state. An intravenous line was placed. A topical anesthetic agent was used for oropharangeal anesthesia. A bite block was inserted. IV conscious sedation was administered using Per Anesthesia. The patient's vital signs, including blood pressure, heart rate, pulse oximetry and cardiac rhythm were monitored thoughout the procedure. The transesophageal probe was passed without difficulty. The usual views were obtained; basal, mid-esophageal, transgastric and aortic views. The patient tolerated the procedure well without evidence of orophangeal or esophageal trauma. Subsequent to all the images being obtained the probe was removed with out trauma. Right Ventricle The right ventricle is normal size. Atria The interatrial septum is intact with no evidence for an atrial septal defect. There is no Doppler evidence for an atrial septal defect. The left atrium is mildly dilated. No left atrial mass or thrombus visualized. Spontaneous contrast in LA. Spontaneous contrast in left atrial appendage. Mitral Valve The mitral valve is grossly normal. Tricuspid Valve The tricuspid valve is normal in structure and function. Aortic Valve The aortic valve is trileaflet. The aortic valve opens well. No hemodynamically significant valvular aortic stenosis. No aortic regurgitation is present. Pulmonic Valve The pulmonic valve is not well visualized. : BRENT BLACK Anil
--- NOTE | 2020-05-18 19:20 | PDOC PROGRESS REPORT ---
Subjective Date:: 05/18/20 Subjective:: The patient is an 89 year old female with a past medical history significant for HTN, HLD, hypothyroidism, arthritis, and obesity who was admitted 05/12/20 with Acute CHF, a. flutter, and diarrhea. Patient was seen on afternoon rounds. She was found sitting up to the recliner, comfortably, on supplemental oxygen via NC. Continues to have borderline SpO2; 88-91%. She does have nails w/ moldovan, although, with good pleth. Patient states she is not on home O2; no prior sleep studies or oxygen testing. She reports she is feeling well today, though very tired this afternoon. She denies fever,chills, chest pain, palpitations, dyspnea, orthopnea, cough, abd pain, n/v. She has no other questions or concerns. Hopeful to d/c home tomorrow. No concerns per nursing. Reason For Visit: DEHYDRATION Physical Exam Vital Signs: Temp Pulse Resp BP Pulse Ox 97.1 F 91 12 91/51 L 86 L 05/18/20 14:56 05/18/20 14:56 05/18/20 11:07 05/18/20 14:56 05/18/20 14:56 Intake & Output 05/17/20 05/18/20 05/19/20 06:59 06:59 06:59 Intake Total 490 1020 510 Output Total 300 300 Balance 190 720 510 Weight 87.4 kg 87.2 kg General appearance: PRESENT: no acute distress, cooperative, obese, well- developed, well-nourished Head exam: PRESENT: atraumatic, normocephalic Eye exam: PRESENT: conjunctiva pink, EOMI, PERRLA. ABSENT: scleral icterus Mouth exam: PRESENT: moist, tongue midline Neck exam: ABSENT: carotid bruit, JVD, lymphadenopathy, thyromegaly Respiratory exam: PRESENT: clear to auscultation timothy, symmetrical, unlabored, other - Supplemental oxygen by nasal cannula. ABSENT: rales, rhonchi, wheezes Cardiovascular exam: PRESENT: RRR - Normal sinus rhythm. ABSENT: diastolic murmur, rubs, systolic murmur Vascular exam: PRESENT: normal capillary refill Extremities exam: PRESENT: full ROM. ABSENT: calf tenderness, clubbing, pedal edema Musculoskeletal exam: PRESENT: ambulatory Neurological exam: PRESENT: alert, awake, oriented to person, oriented to place, oriented to time, oriented to situation, CN II-XII grossly intact. ABSENT: motor sensory deficit Psychiatric exam: PRESENT: appropriate affect, normal mood. ABSENT: homicidal ideation, suicidal ideation Skin exam: PRESENT: dry, intact, warm. ABSENT: cyanosis, rash Results Laboratory Results: 05/17/20 05:52 05/18/20 06:04 05/18/20 06:04 Sodium 138.5 Potassium 4.2 Chloride 95 L Carbon Dioxide 39 H Anion Gap 5 BUN 22 H Creatinine 0.98 Est GFR ( Amer) > 60 Glucose 113 H Calcium 8.8 05/12/20 05/12/20 05/12/20 13:00 13:00 13:00 Creatine Kinase 45 CK-MB (CK-2) 1.90 Troponin I 0.024 Cancelled NT-Pro-B Natriuret Pep 2990 H 05/13/20 05/15/20 05/17/20 06:01 05:47 05:52 Creatine Kinase CK-MB (CK-2) Troponin I NT-Pro-B Natriuret Pep 2310 H 3700 H 5670 H Impressions: Chest X-Ray 05/15/20 00:00 IMPRESSION: Stable pulmonary examination demonstrating low lung volumes with bibasilar atelectasis versus consolidation. Head CT 05/17/20 00:00 IMPRESSION: Atrophy and chronic small vessel ischemic changes with no acute intracranial abnormality. Modified Barium Swallow 05/17/20 00:00 IMPRESSION: NO EVIDENCE OF PENETRATION OR ASPIRATION. PLEASE SEE SPEECH PATHOLOGIST REPORT FOR OTHER FINDINGS AND RECOMMENDATIONS. KUB X-Ray 05/17/20 07:00 IMPRESSION: NO RADIOGRAPHIC EVIDENCE FOR ACUTE ABDOMINAL DISEASE. Assessment and Plan - Diagnosis (1) Atrial flutter with rapid ventricular response Is this a current diagnosis for this admission?: Yes Plan: KAYLA was negative for intramural thrombus. Cardioverted; now in sinus arrhythmia. Occasional PACs, although, these have decreased in frequency throughout the day. Monitor on telemetry. Cardiology has been consulted. Discussed with Dr. Goldstein. Appreciate his assistance. Continue Metoprolol 50 mg twice daily. Continue Eliquis 5 mg twice daily x6 weeks. Outpatient follow-up. (2) Acute CHF (congestive heart failure) Qualifiers: Heart failure type: diastolic Qualified Code(s): I50.31 - Acute diastolic (congestive) heart failure Is this a current diagnosis for this admission?: Yes Plan: Echocardiogram shows preserved ejection fraction. Acute CHF exacerbation likely secondary to atrial fibrillation with RVR. proBNP 2990-> 5670 Cardiology consulted. Gentle diuresis with IV furosemide. Continue metoprolol, lisinopril, aspirin, atorvastatin, and Eliquis therapy. Daily weights, strict I&O's. (3) Aspiration pneumonia due to food (regurgitated) Is this a current diagnosis for this admission?: Yes Plan: Continue p.o. Augmentin; day #07/27 MBSS is nml. Speech therapy has been consulted. Have advanced diet to a mechanical soft ground meat and nectar thickened liquids diet. (4) Dehydration Is this a current diagnosis for this admission?: Yes Plan: Resolved; now with mild fluid volume overload. Cautiously diurese with IV furosemide. (5) Acute diarrhea Is this a current diagnosis for this admission?: Yes Plan: No further episodes. Have asked them to clearly/accurately document stool output. KUB negative for acute findings. C. difficile (ordered at time of admission) remains pending. Stool WBCs and culture pending. (6) Hypoxia Is this a current diagnosis for this admission?: Yes Plan: Intermittent, mild, hypoxia. Possibly related to aspiration pneumonia versus mild CHF in setting of atrial fi brillation RVR. We will obtain overnight pulse oximetry study as the patient is now in a sinus rhythm. Continue supplemental oxygen as needed to maintain saturations greater than 89%. Encourage pulmonary toilet with frequent ambulation, incentive spirometer, and flutter valve. - Time Time Spent with patient: 25-34 minutes Medications reviewed and adjusted accordingly: Yes Anticipated Discharge Disposition: Home with Home Health Anticipated Discharge Timeframe: within 24 hours
[2020-05-18] MEDS: ATORVASTATIN CALCIUM 20 MG TABLET PO SCH (21:24)
[2020-05-19 02:16] LABS: C DIFFICILE GDH NEGATIVE (NEGATIVE)
[2020-05-19] MEDS: LEVOTHYROXINE SODIUM 0.05 MG TABLET PO SCH (05:11)
[2020-05-19 07:04] LABS: BLOOD UREA NITROGEN 30 mg/dL (7-20); CALCIUM 8.8 mg/dL (8.4-10.2); CHLORIDE 93 mmol/L (98-107); GLUCOSE 108 mg/dL (75-110); POTASSIUM 4.5 mmol/L (3.6-5.0)
[2020-05-19 07:11] LABS: ANION GAP 3 (5-19)
[2020-05-19 07:12] LABS: CARBON DIOXIDE 40 mmol/L (22-30)
[2020-05-19] MEDS: FAMOTIDINE 20 MG TABLET PO SCH (10:09)
[2020-05-19] MEDS: ASPIRIN 81 MG TABLET, ENT COATED PO SCH (10:09)
[2020-05-19] MEDS: AMOXICILLIN TR/POT CLAVULANATE 875-125 MG TAB PO SCH (10:09)
[2020-05-19] MEDS: LISINOPRIL 5 MG TABLET PO SCH (10:09)
[2020-05-19] MEDS: CELECOXIB 100 MG CAPSULE PO SCH (10:09)
[2020-05-19] MEDS: APIXABAN 5 MG TABLET PO SCH ×2 (10:10→17:22)
[2020-05-19] MEDS: METOPROLOL TARTRATE 50 MG TABLET PO SCH (10:10)
--- NOTE | 2020-05-19 11:36 | PDOC PROGRESS REPORT ---
Subjective Date:: 05/19/20 Subjective:: Patient seen and examined. Resting comfortably. Does not report any distress. Reason For Visit: DEHYDRATION Physical Exam Vital Signs: Temp Pulse Resp BP Pulse Ox 98.0 F 88 19 133/66 H 96 05/19/20 10:00 05/19/20 08:02 05/19/20 08:02 05/19/20 08:02 05/19/20 08:02 Pulse Oximeter Nocturnal Start: 05/18/20 16:40 Freq: RTQ4 Status: Complete Protocol: Document 05/19/20 07:13 CMI (Rec: 05/19/20 07:13 CMI [id number]) Nocturnal Pulse Oximetry Equipment Usage Equipment Discontinued Continuous SpO2 Machine # [id number] Intake & Output 05/18/20 05/19/20 05/20/20 06:59 06:59 06:59 Intake Total 1020 710 Output Total 300 Balance 720 710 Weight 87.2 kg 77.6 kg General appearance: PRESENT: no acute distress, cooperative, well-developed, well-nourished Head exam: PRESENT: atraumatic, normocephalic Eye exam: PRESENT: conjunctiva pink, EOMI Respiratory exam: PRESENT: clear to auscultation timothy, symmetrical, unlabored Cardiovascular exam: PRESENT: RRR, +S1, +S2 Pulses: PRESENT: normal radial pulses GI/Abdominal exam: PRESENT: soft Rectal exam: PRESENT: deferred Neurological exam: PRESENT: alert, awake, oriented to person, oriented to time, oriented to situation Psychiatric exam: PRESENT: appropriate affect, depressed Skin exam: PRESENT: dry, intact, normal color Results Laboratory Results: 05/17/20 05:52 05/19/20 05:30 05/18/20 05/19/20 22:42 05:30 Sodium 136.4 L Potassium 4.5 Chloride 93 L Carbon Dioxide 40 H* Anion Gap 3 L BUN 30 H Creatinine 1.28 H Est GFR ( Amer) 48 L Glucose 108 Calcium 8.8 Magnesium 1.7 Stool for White Cells NO WBCs SEEN 05/12/20 05/12/20 05/12/20 13:00 13:00 13:00 Creatine Kinase 45 CK-MB (CK-2) 1.90 Troponin I 0.024 Cancelled NT-Pro-B Natriuret Pep 2990 H 05/13/20 05/15/2005/17/20 06:01 05:47 05:52 Creatine Kinase CK-MB (CK-2) Troponin I NT-Pro-B Natriuret Pep 2310 H 3700 H 5670 H Impressions: Chest X-Ray 05/15/20 00:00 IMPRESSION: Stable pulmonary examination demonstrating low lung volumes with bibasilar atelectasis versus consolidation. Head CT 05/17/20 00:00 IMPRESSION: Atrophy and chronic small vessel ischemic changes with no acute intracranial abnormality. Modified Barium Swallow 05/17/20 00:00 IMPRESSION: NO EVIDENCE OF PENETRATION OR ASPIRATION. PLEASE SEE SPEECH PATHOLOGIST REPORT FOR OTHER FINDINGS AND RECOMMENDATIONS. KUB X-Ray 05/17/20 07:00 IMPRESSION: NO RADIOGRAPHIC EVIDENCE FOR ACUTE ABDOMINAL DISEASE. Assessment & Plan - Diagnosis (1) Atrial flutter by electrocardiogram Is this a current diagnosis for this admission?: Yes Plan: Direct-current cardioversion was performed which resulted in jainism of sinus rhythm with frequent PACs. Continue systemic anticoagulation with apixaban 5 mg twice daily for at least 6 weeks Continue metoprolol 50 mg twice daily for blood pressure management as well as to suppress PACs and other triggers for atrial arrhythmias. Met with the son again and discussed the importance of continuing systemic a nticoagulation. (2) Acute diarrhea Is this a current diagnosis for this admission?: Yes Plan: This has resolved. (3) Heart failure with preserved ejection fraction Qualifiers: Heart failure chronicity: acute Qualified Code(s): I50.31 - Acute diastolic (congestive) heart failure Is this a current diagnosis for this admission?: Yes Plan: Echocardiogram showed preserved ejection fraction Patient may have developed mild heart failure symptoms on account of tachycardia from atrial flutter. Today patient appears fairly euvolemic. With jainism of sinus rhythm she ought to do well. May require small dose maintenance diuretic as she may have a component of diastolic dysfunction and diastolic heart failure as well.
[2020-05-19 11:42] LABS: ARTERIAL BLOOD H2CO3 1.87 mmol/L (1.05-1.35); ARTERIAL BLOOD HCO3 32.6 mmol/L (20-24); ARTERIAL BLOOD O2 SATURATION 95.5 % (94-98); ARTERIAL BLOOD PCO2 62.2 mmHg (35-45); ARTERIAL BLOOD PH 7.34 (7.35-7.45); ARTERIAL BLOOD PO2 84.8 mmHg (80-100); ARTERIAL BLOOD TOTAL CO2 34.5 mmol/L (21-25)
[2020-05-19 11:43] LABS: ARTERIAL BLOOD FIO2 1L
--- NOTE | 2020-05-19 16:19 | RADIOLOGY REPORT (SQ) ---
EXAM DESCRIPTION: CHEST SINGLE VIEW IMAGES COMPLETED DATE/TIME: 05/19/2020 4:06 pm REASON FOR STUDY: f/u pneumonia COMPARISON: 05/15/2020 NUMBER OF VIEWS: One view. TECHNIQUE: Single frontal radiographic image of the chest acquired. LIMITATIONS: None. FINDINGS: LUNGS AND PLEURA: Persistent small left pleural effusion and associated airspace disease n ot significantly changed. Trace right pleural effusion. MEDIASTINUM AND HEART: Stable heart size and mediastinal structures. BONY STRUCTURES: No acute findings. HARDWARE: None. OTHER: No other significant finding. IMPRESSION: Left pleural effusion and associated airspace disease. No significant change. TECHNICAL DOCUMENTATION: JOB ID: [id number] Reading location - IP/workstation name: [email or web address]
--- NOTE | 2020-05-19 16:55 | PDOC DISCHARGE SUMMARY ---
Impression - Admit/DC Date/PCP Admission Date/Primary Care Provider: 05/12/20 19:34 NERI DENIS MD Discharge Date: 05/19/20 - Discharge Diagnosis (1) Atrial flutter with rapid ventricular response Is this a current diagnosis for this admission?: Yes (2) Acute CHF (congestive heart failure) Is this a current diagnosis for this admission?: Yes (3) Aspiration pneumonia due to food (regurgitated) Is this a current diagnosis for this admission?: Yes (4) Dehydration Is this a current diagnosis for this admission?: Yes (5) Acute diarrhea Is this a current diagnosis for this admission?: Yes (6) Hypoxia Is this a current diagnosis for this admission?: Yes - Additional Information Resuscitation Status: Full Code Discharge Diet: Regular Discharge Activity: Activity As Tolerated, Balance Activity w/Rest, Slowly Increase Activity, Weigh Daily Referrals: PALMA MANNING MD [ACTIVE PROVISIONAL STAFF] - (Follow up in 4-6 weeks) BRENT BLACK MD [ACTIVE STAFF] - (Follow up within 4 weeks.) NERI DENIS MD [Primary Care Provider] - Follow up as needed Prescriptions: Amoxicillin/Potassium Clav [Augmentin 875-125 Tablet] 1 tab PO Q12 #10 tablet Apixaban [Eliquis 5 mg Tablet] 5 mg PO BID #60 tablet Metoprolol Tartrate [Lopressor 50 mg Tablet] 50 mg PO Q12 #60 tablet Albuterol Sulfate [Ventolin Hfa 8 gm Mdi] 2 puff IH Q4HP PRN #1 inhaler PRN Reason: Lisinopril [Zestril] 2.5 mg PO DAILY #30 tablet Home Medications: Aspirin [Ecotrin 81 mg EC Tablet] 81 mg PO DAILY 05/13/20 Atorvastatin Calcium [Lipitor 20 mg Tablet] 20 mg PO QHS 05/13/20 Celecoxib [Celebrex 100 mg Capsule] 100 mg PO DAILY 05/13/20 Clotrimazole/Betamethasone Dip [Lotrisone Cream 15 gm] 1 applic TP BIDP PRN 05/13/20 Levothyroxine Sodium 50 mcg PO Q6AM 05/13/20 Acetaminophen [Tylenol 325 mg Tablet] 650 mg PO Q4HP PRN tablet 05/19/20 Albuterol Sulfate [Ventolin Hfa 8 gm Mdi] 2 puff IH Q4HP PRN #1 inhaler 05/19/20 Amoxicillin/Potassium Clav [Augmentin 875-125 Tablet] 1 tab PO Q12 #10 tablet 05/19/20 Apixaban [Eliquis 5 mg Tablet] 5 mg PO BID #60 tablet 05/19/20 Lisinopril [Zestril] 2.5 mg PO DAILY #30 tablet 05/19/20 Metoprolol Tartrate [Lopressor 50 mg Tablet] 50 mg PO Q12 #60 tablet 05/19/20 History of Present Illiness History of Present Illness: Per H&P by Dr. Thompson: 89-year-old female with history of hypertension and osteoarthritis presenting with symptoms of a cold, and subsequent diarrhea. Feels that she is getting weaker and notes that she has had about 5 loose stools today. No recent antibiotic therapy. Denies Covid exposure and says that she has generally avoided leaving the house recently. Not experiencing dyspnea on exertion, but has been noticing substernal chest pain, chills Decreased appetite and fluid intake. Denies any previous cardiac history, but has noted persistent swelling in her legs in the last few days and took some medications for it Hospital Course Hospital Course: (1) Atrial flutter with rapid ventricular response Resolved; s/p cardioversion. Now in NSR. KAYLA was negative for intramural thrombus. Cardioverted; now in sinus arrhythmia. Occasional PACs, although, these have decreased in frequency throughout the day. Monitor on telemetry. Cardiology has been consulted. Discussed with Dr. Black. Appreciate his assistance. Continue Metoprolol 50 mg twice daily. Continue Eliquis 5 mg twice daily x6 weeks. Outpatient follow-up. (2) Acute CHF (congestive heart failure) Acute on chronic diastolic CHF exacerbation is resolved. Echocardiogram shows preserved ejection fraction. Acute CHF exacerbation likely secondary to atrial fibrillation with RVR. proBNP 2990-> 5670 Cardiology consulted. Continue metoprolol, lisinopril, aspirin, atorvastatin, and Eliquis therapy. Continue Daily weights. (3) Aspiration pneumonia due to food (regurgitated) Resolved Continue p.o. Augmentin to complete 10-day course. MBSS is nml. Speech therapy has been consulted. Chest x-ray today shows resolution of her right-sided infiltrates. (4) Dehydration Resolved; now with mild fluid volume overload. (5) Acute diarrhea No further episodes. KUB negative for acute findings. C. difficile (ordered at time of admission) negative Stool WBCs and culture negative (6) Hypoxia Secondary to acute on chronic CHF exacerbation in the setting of atrial fibrillation RVR. Scant left-sided pleural effusion with associated atelectasis noted on chest x- ray today. Overnight pulse oximetry study revealed multiple episodes of desaturation into the mid 70s. Resolved with application of supplemental oxygen via nasal cannula. The patient has also had a slightly elevated bicarbonate and hypercapnia on ABG. Recommend pulmonary follow-up and overnight sleep study. Discharge home on supplemental oxygen via nasal cannula continuous use. Physical Exam Vital Signs: Temp Pulse Resp BP Pulse Ox 98.2 F 70 18 119/41 L 97 05/19/20 11:40 05/19/20 14:00 05/19/20 11:40 05/19/20 11:40 05/19/20 11:51 Pulse Oximeter Nocturnal Start: 05/18/20 16:40 Freq: RTQ4 Status: Complete Protocol: Document 05/19/20 07:13 CMI (Rec: 05/19/20 07:13 CMI [id number]) Nocturnal Pulse Oximetry Equipment Usage Equipment Discontinued Continuous SpO2 Machine # [id number] Intake & Output 05/18/20 05/19/20 05/20/20 06:59 06:59 06:59 Intake Total 1020 710 Output Total 300 Balance 720 710 Weight 87.2 kg 77.6 kg General appearance: PRESENT: no acute distress, cooperative, obese, well- developed, well-nourished Head exam: PRESENT: atraumatic, normocephalic Eye exam: PRESENT: conjunctiva pink, EOMI, PERRLA. ABSENT: scleral icterus Mouth exam: PRESENT: moist, tongue midline Respiratory exam: PRESENT: clear to auscultation timothy, symmetrical, unlabored, other - Supplemental oxygen via nasal cannula. ABSENT: rales, rhonchi, wheezes Cardiovascular exam: PRESENT: RRR. ABSENT: diastolic murmur, rubs, systolic murmur Pulses: PRESENT: normal dorsalis pedis pul Vascular exam: PRESENT: normal capillary refill Extremities exam: PRESENT: full ROM. ABSENT: calf tenderness, clubbing, pedal edema Musculoskeletal exam: PRESENT: ambulatory Neurological exam: PRESENT: alert, awake, oriented to person, oriented to place, oriented to time, oriented to situation, CN II-XII grossly intact. ABSENT: motor sensory deficit Psychiatric exam: PRESENT: appropriate affect, normal mood. ABSENT: homicidal ideation, suicidal ideation Skin exam: PRESENT: dry, intact, warm. ABSENT: cyanosis, rash Results Laboratory Results: WBC 6.3 10^3/uL (4.0-10.5) 05/17/20 05:52 RBC 4.12 10^6/uL (3.72-5.28) 05/17/20 05:52 Hgb 12.6 g/dL (12.0-15.5) 05/17/20 05:52 Hct 38.8 % (36.0-47.0) 05/17/20 05:52 MCV 94 fl (80-97) 05/17/20 05:52 MCH 30.5 pg (27.0-33.4) 05/17/20 05:52 MCHC 32.5 g/dL (32.0-36.0) 05/17/20 05:52 RDW 15.0 % (11.5-14.0) H 05/17/20 05:52 Plt Count 129 10^3/uL (150-450) L 05/17/20 05:52 Lymph % (Auto) 18.9 % (13-45) 05/16/20 05:42 [place] % (Auto) 11.5 % (3-13) 05/16/20 05:42 Eos % (Auto) 1.7 % (0-6) 05/16/20 05:42 Baso % (Auto) 0.3 % (0-2) 05/16/20 05:42 Absolute Neuts (auto) 5.2 10^3/uL (1.7-8.2) 05/16/20 05:42 Absolute Lymphs (auto) 1.4 10^3/uL (0.5-4.7) 05/16/20 05:42 Absolute Monos (auto) 0.9 10^3/uL (0.1-1.4) 05/16/20 05:42 Absolute Eos (auto) 0.1 10^3/uL (0.0-0.6) 05/16/20 05:42 Absolute Basos (auto) 0.0 10^3/uL (0.0-0.2) 05/16/20 05:42 Seg Neutrophils % 67.6 % (42-78) 05/16/20 05:42 Carbonic Acid 1.87 mmol/L (1.05-1.35) H 05/19/20 11:00 HCO3/H2CO3 Ratio 17:1 05/19/20 11:00 ABG pH 7.34 (7.35-7.45) L 05/19/20 11:00 ABG pCO2 62.2 mmHg (35-45) H 05/19/20 11:00 ABG pO2 84.8 mmHg (80-100) 05/19/20 11:00 ABG HCO3 32.6 mmol/L (20-24) H 05/19/20 11:00 ABG Total CO2 34.5 mmol/L (21-25) H 05/19/20 11:00 ABG O2 Saturation 95.5 % (94-98) 05/19/20 11:00 ABG Base Excess 5.0 mmol/L 05/19/20 11:00 FiO2 1L 05/19/20 11:00 Sodium 136.4 mmol/L (137-145) L 05/19/20 05:30 Potassium 4.5 mmol/L (3.6-5.0) 05/19/20 05:30 Chloride 93 mmol/L (98-107) L 05/19/20 05:30 Carbon Dioxide 40 mmol/L (22-30) H* 05/19/20 05:30 Anion Gap 3 (5-19) L 05/19/20 05:30 BUN 30 mg/dL (7-20) H 05/19/20 05:30 Creatinine 1.28 mg/dL (0.52-1.25) H 05/19/20 05:30 Est GFR ( Amer) 48 (>60) L 05/19/20 05:30 Est GFR (MDRD) Non-Af 39 (>60) L 05/19/20 05:30 Glucose 108 mg/dL (75-110) 05/19/20 05:30 POC Glucose 141 mg/dL (70-110) H 05/14/20 11:57 Calcium 8.8 mg/dL (8.4-10.2) 05/19/20 05:30 Phosphorus 4.3 mg/dL (2.5-4.5) 05/13/20 06:01 Magnesium 1.7 mg/dL (1.6-2.3) 05/19/20 05:30 Total Bilirubin 0.5 mg/dL (0.2-1.3) 05/16/20 05:42 Direct Bilirubin 0.2 mg/dL (0.0-0.4) 05/16/20 05:42 Neonat Total Bilirubin Not Reportable 05/16/20 05:42 Neonat Direct Bilirubin Not Reportable 05/16/20 05:42 Neonat Indirect Bili Not Reportable 05/16/20 05:42 AST 30 U/L (14-36) 05/16/20 05:42 ALT 25 U/L (<35) 05/16/20 05:42 Alkaline Phosphatase 68 U/L (38-126) 05/16/20 05:42 Creatine Kinase 45 U/L (30-135) 05/12/20 13:00 CK-MB (CK-2) 1.90 ng/mL (<4.55) 05/12/20 13:00 Troponin I 0.024 ng/mL 05/12/20 13:00 Troponin I Cancelled 05/12/20 13:00 NT-Pro-B Natriuret Pep 5450 pg/mL (<450) H 05/19/20 05:30 Total Protein 6.1 g/dL (6.3-8.2) L 05/16/20 05:42 Albumin 3.4 g/dL (3.5-5.0) L 05/16/20 05:42 Kong Human Metapneumo PCR Cancelled 05/12/20 14:06 [place] Human Metapneumo PCR NOT DETECTED (NOT DETECT) 05/12/20 14:06 Stool for White Cells NO WBCs SEEN 05/18/20 22:42 Stl C. Difficile GDH Ag NEGATIVE (NEGATIVE) 05/18/20 22:42 Stl C.difficile Tox A&B NEGATIVE (NEGATIVE) 05/18/20 22:42 Adenovirus (PCR) Cancelled 05/12/20 14:06 Adenovirus (PCR) NOT DETECTED (NOT DETECT) 05/12/20 14:06 B. pertussis DNA (PCR) Cancelled 05/12/20 14:06 B. pertussis DNA (PCR) NOT DETECTED (NOT DETECT) 05/12/20 14:06 B.parapertussis DNA PCR Cancelled 05/12/20 14:06 B.parapertussis DNA PCR NOT DETECTED (NOT DETECT) 05/12/20 14:06 C. pneumoniae DNA (PCR) Cancelled 05/12/20 14:06 C. pneumoniae DNA (PCR) NOT DETECTED (NOT DETECT) 05/12/20 14:06 Coronavirus OC43 (PCR) Cancelled 05/12/20 14:06 Coronavirus OC43 (PCR) NOT DETECTED (NOT DETECT) 05/12/20 14:06 Coronavirus HKU1 (PCR) Cancelled 05/12/20 14:06 Coronavirus HKU1 (PCR) NOT DETECTED (NOT DETECT) 05/12/20 14:06 Coronavirus 229E (PCR) Cancelled 05/12/20 14:06 Coronavirus 229E (PCR) NOT DETECTED (NOT DETECT) 05/12/20 14:06 Coronavirus NL63 (PCR) Cancelled 05/12/20 14:06 Coronavirus NL63 (PCR) NOT DETECTED (NOT DETECT) 05/12/20 14:06 Influenza A (H1) PCR Cancelled 05/12/20 14:06 Influenza A (H1) PCR NOT DETECTED (NOT DETECT) 05/12/20 14:06 Influ A (H1N1/09) PCR Cancelled 05/12/20 14:06 Influ A (H1N1/09) PCR NOT DETECTED (NOT DETECT) 05/12/20 14:06 Influenza A (H3) PCR Cancelled 05/12/20 14:06 Influenza A (H3) PCR NOT DETECTED (NOT DETECT) 05/12/20 14:06 Influenza Type A (PCR) Cancelled 05/12/20 14:06 Influenza Type A (PCR) NOT DETECTED (NOT DETECT) 05/12/20 14:06 Influenza Type B (PCR) Cancelled 05/12/20 14:06 Influenza Type B (PCR) NOT DETECTED (NOT DETECT) 05/12/20 14:06 M. pneumoniae (PCR) Cancelled 05/12/20 14:06 M. pneumoniae (PCR) NOT DETECTED (NOT DETECT) 05/12/20 14:06 Parainfluenza 1 (PCR) Cancelled 05/12/20 14:06 Parainfluenza 1 (PCR) NOT DETECTED (NOT DETECT) 05/12/20 14:06 Parainfluenza 2 (PCR) Cancelled 05/12/20 14:06 Parainfluenza 2 (PCR) NOT DETECTED (NOT DETECT) 05/12/20 14:06 Parainfluenza 3 (PCR) Cancelled 05/12/20 14:06 Parainfluenza 3 (PCR) NOT DETECTED (NOT DETECT) 05/12/20 14:06 Parainfluenza 4 (PCR) Cancelled 05/12/20 14:06 Parainfluenza 4 (PCR) NOT DETECTED (NOT DETECT) 05/12/20 14:06 RSV (PCR) Cancelled 05/12/20 14:06 RSV (PCR) NOT DETECTED (NOT DETECT) 05/12/20 14:06 Entero/Rhino (PCR) Cancelled 05/12/20 14:06 Entero/Rhino (PCR) NOT DETECTED (NOT DETECT) 05/12/20 14:06 SARS-CoV-2 (PCR) Cancelled 05/12/20 14:06 SARS-CoV-2 (PCR) NOT DETECTED (NOT DETECT) 05/12/20 14:06 05/12/20 05/12/20 05/13/20 13:00 13:00 06:01 CK-MB (CK-2) 1.90 Troponin I 0.024 Cancelled NT-Pro-B Natriuret Pep 2990 H 2310 H 05/15/20 05/17/20 05/19/20 05:47 05:52 05:30 CK-MB (CK-2) Troponin I NT-Pro-B Natriuret Pep 3700 H 5670 H 5450 H Impressions: Chest X-Ray 05/12/20 00:00 IMPRESSION: 1. Chronic right infrahilar opacity the prior study dated 11/13/2012. 2. Vague opacity suggested in the right upper lung zone. Chest X-Ray 05/13/20 00:00 IMPRESSION: Atelectasis versus focal pneumonia in the right lower lobe. Cannot exclude a limited left lower lobe pneumonia. Chest X-Ray 05/15/20 00:00 IMPRESSION: Stable pulmonary examination demonstrating low lung volumes with bibasilar atelectasis versus consolidation. Head CT 05/17/20 00:00 IMPRESSION: Atrophy and chronic small vessel ischemic changes with no acute intracranial abnormality. Modified Barium Swallow 05/17/20 00:00 IMPRESSION: NO EVIDENCE OF PENETRATION OR ASPIRATION. PLEASE SEE SPEECH PATHOLOGIST REPORT FOR OTHER FINDINGS AND RECOMMENDATIONS. KUB X-Ray 05/17/20 07:00 IMPRESSION: NO RADIOGRAPHIC EVIDENCE FOR ACUTE ABDOMINAL DISEASE. Chest X-Ray 05/19/20 00:00 IMPRESSION: Left pleural effusion and associated airspace disease. No significant change. Plan Plan of Treatment: Patient is discharged home, in stable condition, with home health services and supplemental oxygen. She is advised to follow up with her primary care provider within 1 week. Follow-up with Dr. Black within 4 to 6 weeks. Establish with pulmonology, Dr. Manning for further evaluation of her oxygen needs. Recommend overnight sleep study. Take medications as prescribed. Continue full dose Eliquis x6 weeks. Return to the emergency department, as needed, for concerning symptoms. Time Spent: Greater than 30 Minutes Stroke Is this a Stroke Patient?: No Acute Heart Failure Is this a Heart Failure Patient?: No
[2020-05-19 17:54] VITALS: BP 114/54
== END 2020-05-19 18:54 | disposition home or self-care (01) | DRG 291 ==
LOC: ER 11:56 → EH 19:34 → 3S 22:06 → 4S 05-15 12:07
PROVIDERS: ADMIT Family Medicine; ATTEND Registered Nurse
PROC: 5A2204Z Restoration of Cardiac Rhythm, Single (ICD-10-PCS; principal; 2020-05-18 09:00)
PROC: B24BZZ4 Ultrasonography of Heart with Aorta, Transesophageal (ICD-10-PCS; 2020-05-18 09:00)
DX: I11.0 Hypertensive heart disease with heart failure (principal); J69.0 Pneumonitis due to inhalation of food and vomit; I48.92 Unspecified atrial flutter; I50.33 Acute on chronic diastolic (congestive) heart failure; E86.0 Dehydration; Z20.828 Contact with and (suspected) exposure to other viral communicable diseases; M19.90 Unspecified osteoarthritis, unspecified site; R77.8 Other specified abnormalities of plasma proteins; E78.5 Hyperlipidemia, unspecified; R19.7 Diarrhea, unspecified; Z79.899 Other long term (current) drug therapy; Z82.49 Family history of ischemic heart disease and other diseases of the circulatory system
CPT/HCPCS: 01922; 0202U; 36415; 36600; 70450; 71045; 74018; 74230; 80048; 80053; 82550; 82553; 82803; 82962; 83735; 83880; 84100; 84484; 85025; 85027; 87045; 87205; 87324; 87449; 89055; 93005; 93010; 93306; 93312; 93325; 94667; 94668; 94762; 94799; 96361; 96365; 96366; 96375; 99291; J0153; J0295; J1100; J1650; J1940; J2704; J3490; J7030; J7050